=== PATIENT | female | born 1995 | race Caucasian/White ===

== ENCOUNTER 2016-09-25 22:10 | Emergency (ER) | payer OTHER ==
[2016-09-25 22:25] VITALS: BP 138/71; PULSE 81; TEMP 98.2; BMI 23.9
[2016-09-25 23:06] LABS: URINE APPEARANCE CLEAR; URINE BILIRUBIN NEGATIVE (NEGATIVE); URINE BLOOD NEGATIVE (NEGATIVE); URINE COLOR STRAW; URINE GLUCOSE (UA) NEGATIVE (NEGATIVE); URINE KETONE NEGATIVE (NEGATIVE); URINE NITRITE NEGATIVE (NEGATIVE); URINE PROTEIN NEGATIVE (NEGATIVE); URINE UROBILINOGEN NEGATIVE E.U./dl (0.2-1.0)
[2016-09-25 23:08] LABS: URINE LEUK ESTERASE TRACE (NEGATIVE)
[2016-09-25 23:14] LABS: URINE MUCUS RARE; URINE RBC <1 /hpf (0-3); URINE WBC 2 /hpf (3-5)
--- NOTE | 2016-09-25 23:44 | PDOC ---
History of Present Illness - General History Source: Patient Exam Limitations: No Limitations - History of Present Illness Initial Comments: 09/26/16 00:15 Patient is a 20 year old female with no significant past medical history who presents to the ED with right adnexal pain for 1 day. She describes the pain as uncomfortable.Patient notes that she has developed the following symptoms at 12pm today that have progressively worsened around 4pm when she was doing a lot of walking at work. She reports nausea, dizziness and urinary frequency. Surgical hx: none <Kaylie Murguia - Last Filed: 09/26/16 01:48> <Yaneli Sheppard - Last Filed: 09/26/16 02:05> - General Chief Complaint: Pain, Acute Stated Complaint: ABD PAIN Time Seen by Provider: 09/25/16 22:49 Past History <Kaylie Murguia - Last Filed: 09/26/16 01:48> - Past Medical History Suicide Attempt (Hx): No Other medical history: denies - Immunization History Immunization Up to Date: Yes - Psycho/Social/Smoking Cessation Hx Suicidal Ideation: No Smoking History: Never smoked Hx Alcohol Use: No Substance Use Type: None <Yaneli Sheppard - Last Filed: 09/26/16 02:05> - Past Medical History Allergies/Adverse Reactions: Allergies Allergy/AdvReac Type Severity Reaction Status Date / Time No Known Allergies Allergy Verified 09/25/16 22:22 Home Medications: Ambulatory Orders NK [No Known Home Medication] 09/25/16 Review of Systems - Review of Systems Able to Perform ROS?: Yes Comments:: 09/26/16 00:15 CONSTITUTIONAL: Absent: fever, chills, diaphoresis, generalized weakness, malaise, loss of appetite HEENT: Absent: rhinorrhea, nasal congestion, throat pain, throat swelling, difficulty swallowing, mouth swelling, ear pain, eye pain, visual Changes CARDIOVASCULAR: Absent: chest pain, syncope, palpitations, irregular heart rate, lightheadedness , peripheral edema RESPIRATORY: Absent: cough, shortness of breath, dyspnea with exertion, orthopnea, wheezing, stridor, hemoptysis GASTROINTESTINAL: Present: R suprapelvic pain Absent: abdominal pain, abdominal distension, nausea, vomiting, diarrhea, constipation, melena, hematochezia GENITOURINARY: Absent: dysuria, frequency, urgency, hesitancy, hematuria, flank pain, genital pain MUSCULOSKELETAL: Absent: myalgia, arthralgia, joint swelling SKIN: Absent: rash, itching, pallor HEMATOLOGIC/IMMUNOLOGIC: Absent: easy bleeding, easy bruising, lymphadenopathy, frequent infections ENDOCRINE: Absent: unexplained weight gain, unexplained weight loss, heat intolerance, cold intolerance NEUROLOGIC: Absent: headache, focal weakness or paresthesias, dizziness, unsteady gait, seizure, mental status changes, bladder or bowel incontinence PSYCHIATRIC: Absent: anxiety, depression, suicidal or homicidal ideation, hallucinations. <Kaylie Murguia - Last Filed: 09/26/16 01:48> *Physical Exam - Vital Signs Last Vital Signs Temp Pulse Resp BP Pulse Ox 98.2 F 81 18 138/71 100 09/25/16 22:22 09/25/16 22:22 09/25/16 22:22 09/25/16 22:22 09/25/16 22:22 - Physical Exam Comments: 09/26/16 00:16 GENERAL: Well developed, well nourished. Awake and alert. No acute distress. HEENT: Normocephalic, atraumatic. PERRLA, EOMI. No conjunctival pallor. Sclera are non- icteric. Moist mucous membranes. Oropharynx is clear. NECK: Supple. Full ROM. No JVD. Carotid pulses 2+ and symmetric, without bruits. No thyromegaly. No lymphadenopathy. CARDIOVASCULAR: Regular rate and rhythm. No murmurs, rubs, or gallops. Distal pulses are 2+ and symmetric. PULMONARY: No evidence of respiratory distress. Lungs clear to auscultation bilaterally. No wheezing, rales or rhonchi. ABDOMINAL: + right adnexal pain tenderness. Soft. Non-distended. No rebound or guarding. No organomegaly. Normoactive bowel sounds. MUSCULOSKELETAL Normal range of motion at all joints. No bony deformities or tenderness. No CVA tenderness. EXTREMITIES: No cyanosis. No clubbing. No edema. No calf tenderness. SKIN: Warm and dry. Normal capillary refill. No rashes. No jaundice. NEUROLOGICAL: Alert, awake, appropriate. Cranial nerves 2-12 intact. No deficits to light touch and temperature in face, upper extremities and lower extremities. No motor deficits in the in face, upper extremities and lower extremities. Normoreflexic in the upper and lower extremities. Normal speech. Toes are down-going bilaterally. Gait is normal without ataxia. PSYCHIATRIC: Cooperative. Good eye contact. Appropriate mood and affect. <Kaylie Murguia - Last Filed: 09/26/16 01:48> - Vital Signs Last Vital Signs Temp Pulse Resp BP Pulse Ox 98.2 F 81 18 138/71 100 09/25/16 22:22 09/25/16 22:22 09/25/16 22:22 09/25/16 22:22 09/25/16 22:22 <Yaneli Sheppard - Last Filed: 09/26/16 02:05> ED Treatment Course - ADDITIONAL ORDERS Additional order review: Laboratory Results 09/25/16 22:51 Urine Color Straw Urine Appearance Clear Urine pH 6.0 Ur Specific [place] 1.012 Urine Protein Negative Urine Glucose (UA) Negative Urine Ketones Negative Urine Blood Negative Urine Nitrite Negative Urine Bilirubin Negative Urine Urobilinogen Negative Ur Leukocyte Esterase Trace H Urine RBC <1 Urine WBC 2 Ur Epithelial Cells Rare Urine Mucus Rare Urine HCG, Qual Negative - RADIOLOGY Radiology Studies Ordered: 09/26/16 01:48 EXAM: Transvaginal pelvic ultrasound with Doppler study of the bilateral ovaries FINDINGS: Uterus is normal. Endometrial complex is normal and homogeneous with a thickness of 6.6 mm. Trace fluid in the cervix. Normal follicular right ovary with positive Doppler blood flow. Normal follicular left ovary with positive Doppler blood flow. There is some free fluid in the pelvic cul-de- sac. Therefore, there could have been a cyst that ruptured. <Kaylie Murguia - Last Filed: 09/26/16 01:48> - ADDITIONAL ORDERS Additional order review: Laboratory Results 09/25/16 22:51 Urine Color Straw Urine Appearance Clear Urine pH 6.0 Ur Specific [place] 1.012 Urine Protein Negative Urine Glucose (UA) Negative Urine Ketones Negative Urine Blood Negative Urine Nitrite Negative Urine Bilirubin Negative Urine Urobilinogen Negative Ur Leukocyte Esterase Trace H Urine RBC <1 Urine WBC 2 Ur Epithelial Cells Rare Urine Mucus Rare Urine HCG, Qual Negative <Yaneli Sheppard - Last Filed: 09/26/16 02:05> *DC/Admit/Observation/Transfer - Attestations Scribe Attestion: 09/26/16 00:17 Documentation prepared by LULU Garcia, acting as medical professionals for Yaneli Sheppard MD. <Kaylie Murguia - Last Filed: 09/26/16 01:48> <Yaneli Sheppard - Last Filed: 09/26/16 02:05> Diagnosis at time of Disposition: Cyst of ovary Qualifiers: Laterality: unspecified laterality Qualified Code(s): N83.20 - Unspecified ovarian cysts - Discharge Dispostion Disposition: HOME Condition at time of disposition: Stable - Referrals Referrals: STAFF,NOT ON [Primary Care Provider] - - Patient Instructions Printed Discharge Instructions: DI for Ovarian Cyst Additional Instructions: please take motrin for pain return in 24 hours if your symptoms worsen
== END 2016-09-26 02:09 | disposition home or self-care (01) ==
LOC: JER 22:10
DX: N83.209 Unspecified ovarian cyst, unspecified side (principal)
CPT/HCPCS: 76830-TC; 81003; 81015; 84703; 87086; 99282-25

== ENCOUNTER 2017-03-01 16:38 | Emergency (ER) | payer OTHER ==
[2017-03-01 16:55] VITALS: TEMP 98.4; BMI 26.2
--- NOTE | 2017-03-01 19:40 | PDOC ---
History of Present Illness - General Chief Complaint: Pain Stated Complaint: ABDOMINAL PAIN Time Seen by Provider: 03/01/17 19:40 - History of Present Illness Initial Comments: 03/01/17 20:06 03/01/17 19:56 20 year old female with b/l pelvic pain , dysparenia and vaginal bleeding x1 episode.neg home .patient reports clear vaginal discharge. LMP . Patient denies fever, nausea, vomiting and diarrhea, headache, chest pain, dysuria, frequency, and flank pain. Past History - Past Medical History Allergies/Adverse Reactions: Allergies Allergy/AdvReac Type Severity Reaction Status Date / Time No Known Allergies Allergy Verified 03/01/17 16:55 Home Medications: Ambulatory Orders Nitrofurantoin Monohyd/M-Cryst [Macrobid -] 100 mg PO BID #14 capsule 03/01/17 Suicide Attempt (Hx): No Other medical history: NONE - Immunization History Immunization Up to Date: Yes - Psycho/Social/Smoking Cessation Hx Anxiety: No Suicidal Ideation: No Smoking History: Never smoked Hx Alcohol Use: No Drug/Substance Use Hx: No Substance Use Type: None Review of Systems - Review of Systems Able to Perform ROS?: No Constitutional: No: Symptoms Reported, See HPI, Chills, Diaphoresis, Fever, Loss of Appetite, Malaise, Night Sweats, Weakness, Weight Stable, Unintentional Wgt. Loss, Unexplained wgt Loss, Other ABD/GI: Yes: Other (pelvic pain) : Yes: Symptoms Reported *Physical Exam - Vital Signs Last Vital Signs Temp Pulse Resp BP Pulse Ox 98.4 F 83 20 136/66 100 03/01/17 16:53 03/01/17 16:53 03/01/17 16:53 03/01/17 16:53 03/01/17 16:53 - Physical Exam General Appearance: Yes: Appropriately Dressed Respiratory/Chest: positive: Lungs Clear, Normal Breath Sounds Female Pelvic Exam: positive: normal external exam, cervical os closed, other ( white vaginal discharge in the vaginal vault). negative: Bartholin mass, adnexal tenderness Gastrointestinal/Abdominal: positive: Normal Bowel Sounds, Soft, Other ( suprapubic tenderness) Rectal Exam: positive: normal exam Musculoskeletal: positive: Normal Inspection. negative: CVA Tenderness Extremity: positive: Normal Capillary Refill, Normal Inspection, Normal Range of Motion Integumentary: positive: Normal Color, Dry, Warm Neurologic: positive: Fully Oriented, Alert, Normal Mood/Affect Progress Note - Progress Note Progress Note: A: UTI P: UA: + 3 leuks urine culture urine : negative GC pending. *DC/Admit/Observation/Transfer Diagnosis at time of Disposition: UTI (urinary tract infection) Qualifiers: Urinary tract infection type: acute cystitis Hematuria presence: without hematuria Qualified Code(s): N30.00 - Acute cystitis without hematuria - Discharge Dispostion Disposition: HOME - Prescriptions Prescriptions: Nitrofurantoin Monohyd/M-Cryst [Macrobid -] 100 mg PO BID #14 capsule - Patient Instructions Printed Discharge Instructions: DI for Urinary Tract Infection (UTI) Additional Instructions: drink plenty of fluids take macrobid as prescribed. follow up with your obgyn nurse return to the ER if symptoms worsen.
[2017-03-01 20:31] LABS: URINE APPEARANCE SLCLOUDY; URINE BILIRUBIN NEGATIVE (NEGATIVE); URINE COLOR YELLOW; URINE GLUCOSE (UA) NEGATIVE (NEGATIVE); URINE KETONE NEGATIVE (NEGATIVE); URINE NITRITE NEGATIVE (NEGATIVE); URINE PROTEIN NEGATIVE (NEGATIVE); URINE UROBILINOGEN NEGATIVE E.U./dl (0.2-1.0)
[2017-03-01 20:44] LABS: URINE BLOOD 1+ (NEGATIVE); URINE LEUK ESTERASE 3+ (NEGATIVE)
[2017-03-01 20:45] LABS: URINE BACTERIA RARE /hpf (NONE SEEN); URINE MUCUS FEW; URINE RBC 8 /hpf (0-3); URINE WBC 10 /hpf (3-5)
--- NOTE | 2017-03-01 21:02 | PDOC ---
*Physical Exam - Vital Signs Last Vital Signs Temp Pulse Resp BP Pulse Ox 98.4 F 83 20 136/66 100 03/01/17 16:53 03/01/17 16:53 03/01/17 16:53 03/01/17 16:53 03/01/17 16:53 ED Treatment Course - ADDITIONAL ORDERS Additional order review: Laboratory Results 03/01/17 20:00 Urine Color Yellow Urine Appearance Slcloudy Urine pH 5.0 Urine Protein Negative Urine Glucose (UA) Negative Urine Ketones Negative Urine Blood 1+ H Urine Nitrite Negative Urine Bilirubin Negative Urine Urobilinogen Negative Ur Leukocyte Esterase 3+ H D Urine RBC 8 Urine WBC 10 Ur Epithelial Cells Moderate Urine Bacteria Rare Urine Mucus Few Urine HCG, Qual Negative Medical Decision Making - Medical Decision Making 03/01/17 21:02 agree with care from NANDINI Sheppard *DC/Admit/Observation/Transfer Diagnosis at time of Disposition: UTI (urinary tract infection) - Discharge Dispostion Disposition: HOME - Prescriptions Prescriptions: Nitrofurantoin Monohyd/M-Cryst [Macrobid -] 100 mg PO BID #14 capsule - Referrals Referrals: STAFF,NOT ON [Primary Care Provider] - - Patient Instructions Printed Discharge Instructions: DI for Urinary Tract Infection (UTI) Additional Instructions: drink plenty of fluids take macrobid as prescribed. follow up with your maritime pilot return to the ER if symptoms worsen.
[2017-03-01] MEDS ORDERED: NITROFURANTOIN MACROCRYSTAL 50 MG CAPSULE (FP) PO SCH (21:30)
[2017-03-01 22:01] VITALS: BP 128/72; PULSE 86
== END 2017-03-01 22:04 | disposition home or self-care (01) ==
LOC: JER 16:38
DX: N30.00 Acute cystitis without hematuria (principal)
CPT/HCPCS: 36415; 81003; 81015; 84703; 87086; 87491; 87591; 99284-25

== ENCOUNTER 2017-11-28 16:19 | Emergency (ER) | payer OTHER ==
[2017-11-28] MEDS ORDERED: predniSONE 20 MG TABLET (UD) PO ONE (16:32)
[2017-11-28] MEDS ORDERED: diphenhydrAMINE HCL 25 MG CAPSULE (FP) PO ONE (16:32)
--- NOTE | 2017-11-28 16:32 | PDOC ---
Rapid Medical Evaluation Time Seen by Provider: 11/28/17 16:29 Medical Evaluation: Allergies Allergy/AdvReac Type Severity Reaction Status Date / Time No Known Allergies Allergy Verified 03/01/17 16:55 11/28/17 16:29 Pt c/o: sudden onset of itchy hives to face after eating wings, no breathing complaints, states throat feels funny Pt on brief exam: noted wheals to face and neck. Post soft palate pink, uvula midline and nonelongated Pt ordered for: Pt to proceed to the ED Discharge Disposition - Diagnosis Allergic reaction - Referrals - Patient Instructions - Post Discharge Activity
[2017-11-28 16:35] VITALS: BP 140/85; PULSE 75; TEMP 98.4; BMI 27.4
[2017-11-28] MEDS ORDERED: RANITIDINE HCL 150 MG TABLET (FP) PO ONE (17:02)
--- NOTE | 2017-11-28 17:03 | PDOC ---
History of Present Illness - General History Source: Patient Exam Limitations: No Limitations - History of Present Illness Initial Comments: 11/28/17 17:27 The patient is a 22 year old female, with no significant past medical history, who presents to the emergency department with, two hours of an allergic reaction. The patient describes her reaction to be localized to her face, ears, and neck. She describes her rash to be itchy and stinging. As per patient, she ate at [employer] 2 hours before her allergic reaction began then, went home to lay down. She reports after getting up her symptoms onset. She reports to have had one episode of an allergic reactions after touching a cat. She denies having any allergies. She denies recent fevers, chills, headache or dizziness. She denies recent nausea, vomit, diarrhea or constipation. She denies recent dysuria, frequency, urgency or hematuria. She denies recent chest pain or shortness of breath. Allergies: NKA Past surgical history: None reported. Social history: Nonsmoker. Denies EtOH use and recreational drug use. <Nguyen Conklin - Last Filed: 11/28/17 17:27> <Ying Teague - Last Filed: 11/28/17 18:06> - General Chief Complaint: Allergic Reaction Stated Complaint: ALLERGIC REACTION Time Seen by Provider: 11/28/17 16:29 Past History <Nguyen Conklin - Last Filed: 11/28/17 17:27> - Past Medical History COPD: No Other medical history: DENIES. - Immunization History Immunization Up to Date: Yes - Suicide/Smoking/Psychosocial Hx Smoking History: Current every day smoker Have you smoked in the past 12 months: Yes Number of Cigarettes Smoked Daily: 2 Information on smoking cessation initiated: No Hx Alcohol Use: No Drug/Substance Use Hx: No Substance Use Type: None <Ying Teague - Last Filed: 11/28/17 18:06> - Past Medical History Allergies/Adverse Reactions: Allergies Allergy/AdvReac Type Severity Reaction Status Date / Time No Known Allergies Allergy Verified 11/28/17 16:30 Home Medications: Ambulatory Orders Diphenhydramine [Benadryl -] 50 mg PO DAILY #10 capsule 11/28/17 Prednisone [Deltasone] 20 mg PO DAILY #5 tablet 11/28/17 Ranitidine HCl [Zantac] 150 mg PO DAILY #14 tablet 11/28/17 Review of Systems - Review of Systems Able to Perform ROS?: Yes Comments:: 11/28/17 17:28 CONSTITUTIONAL: Absent: fever, no chills, no fatigue EYES: Absent: visual changes ENT: Absent: ear pain, no sore throat CARDIOVASCULAR: Absent: chest pain, no palpitations RESPIRATORY: Absent: cough, no SOB GI: Absent: abdominal pain, no nausea, no vomiting, no constipation, no diarrhea GENITOURINARY: Absent: dysuria, no frequency, no hematuria MUSKULOSKELETAL: Absent: back pain, no arthralgia, no myalgia SKIN: Present: Rash on the face, neck, and ears. NEURO: Absent: headache All Other Systems: Reviewed and Negative <Nguyen Conklin - Last Filed: 11/28/17 17:27> *Physical Exam - Vital Signs Last Vital Signs Temp Pulse Resp BP Pulse Ox 98.4 F 75 19 140/85 100 11/28/17 16:30 11/28/17 16:30 11/28/17 16:30 11/28/17 16:30 11/28/17 16:30 - Physical Exam Comments: 11/28/17 17:28 GENERAL: Well-appearing, well-nourished. No apparent distress. HEENT: Normocephalic, atraumatic. PERRL, EOM intact. CARDIOVASCULAR: Normal S1, S2. Regular rate and rhythm. PULMONARY: Clear to auscultation bilaterally. ABDOMEN: Soft, non-distended, non-tender. EXTREMITIES: Normal ROM in all four extremities. No gross deformities. (+) SKIN: + Pruritic erythematous wheales to the face and neck. Raw erythematous right pinnacle. Warm, dry. NEUROLOGICAL: No focal neurological deficits. <Nguyen Conklin - Last Filed: 11/28/17 17:27> - Vital Signs Last Vital Signs Temp Pulse Resp BP Pulse Ox 98.4 F 75 19 140/85 100 11/28/17 16:30 11/28/17 16:30 11/28/17 16:30 11/28/17 16:30 11/28/17 16:30 <Ying Teague - Last Filed: 11/28/17 18:06> ED Treatment Course - Medications Given in the ED: ED Medications Discontinued Medications Generic Name Dose Route Start Last Admin Trade Name Freq PRN Reason Stop Dose Admin Diphenhydramine HCl 50 mg 11/28/17 16:32 11/28/17 16:37 Benadryl - PO 11/28/17 16:33 50 mg ONCE ONE Administration Prednisone 60 mg 11/28/17 16:32 11/28/17 16:37 Deltasone - PO 11/28/17 16:33 60 mg ONCE ONE Administration Ranitidine HCl 150 mg 11/28/17 17:02 11/28/17 17:09 Zantac - PO 11/28/17 17:03 150 mg ONCE ONE Administration <Nguyen Conklin - Last Filed: 11/28/17 17:27> - Medications Given in the ED: ED Medications Discontinued Medications Generic Name Dose Route Start Last Admin Trade Name Freq PRN Reason Stop Dose Admin Diphenhydramine HCl 50 mg 11/28/17 16:32 11/28/17 16:37 Benadryl - PO 11/28/17 16:33 50 mg ONCE ONE Administration Prednisone 60 mg 11/28/17 16:32 11/28/17 16:37 Deltasone - PO 11/28/17 16:33 60 mg ONCE ONE Administration <Ying Teague - Last Filed: 11/28/17 18:06> Medical Decision Making - Medical Decision Making 11/28/17 18:03 A/P: Patient here with allergic reaction to face, denies any new lotion soaps or detergents however was rubbing her face on a pillow that was recently washing gain. Patient reports eating wings where she has eaten in the past at 1 PM, rash started at 3 after laying down and having her face and the pillow. Wheals localized to face, and neck. Prednisone, Benadryl and Zantac given with good results, wheals have resolved will DC patient on Benadryl, Zantac and prednisone. If any increased rash, wheezing, difficulty swallowing, or any other concerns return to ER <Ying Teague - Last Filed: 11/28/17 18:06> *DC/Admit/Observation/Transfer - Attestations Scribe Attestion: 11/28/17 17:29 Documentation prepared by Nguyen Conklin, acting as medical chief technician for Emergency Dept,PhysicianMD. <Nguyen Conklin - Last Filed: 11/28/17 17:27> - Discharge Dispostion Admit: No <Ying Teague - Last Filed: 11/28/17 18:06> Diagnosis at time of Disposition: Allergic reaction Qualifiers: Encounter type: initial encounter Qualified Code(s): T78.40XA - Allergy, unspecified, initial encounter - Discharge Dispostion Disposition: HOME Condition at time of disposition: Stable - Prescriptions Prescriptions: Diphenhydramine [Benadryl -] 50 mg PO DAILY #10 capsule Prednisone [Deltasone] 20 mg PO DAILY #5 tablet Ranitidine HCl [Zantac] 150 mg PO DAILY #14 tablet - Referrals Referrals: Vito Gonzalez MD [Staff Physician] - - Patient Instructions Additional Instructions: Benadryl every 8 hours for the next 3 days if any increased rash, shortness of breath, difficulty swallowing, wheezing, or any other concerns return to ER - Post Discharge Activity Forms/Work/School Notes: Back to Work
[2017-11-28] MEDS ORDERED: RANITIDINE HCL 150 MG TABLET (FP) ONE (17:10)
== END 2017-11-28 18:35 | disposition home or self-care (01) ==
LOC: JERFT 16:19
DX: T78.1XXA Other adverse food reactions, not elsewhere classified, initial encounter (principal); L50.0 Allergic urticaria; X58.XXXA Exposure to other specified factors, initial encounter
CPT/HCPCS: 99281-25

== ENCOUNTER 2018-10-22 12:57 | Emergency (ER) | payer SELFPAY ==
[2018-10-22 13:09] VITALS: BP 149/65; PULSE 101; TEMP 98.7; BMI 29.2
[2018-10-22] MEDS ORDERED: PENICILLIN G BENZATHINE 1,200,000 UNIT/2 ML PFS IM ONE (13:40)
[2018-10-22] MEDS ORDERED: DEXAMETHASONE LIQUID 0.5 MG/5 ML 240 ML BULK BOTTLE PO ONE (13:40)
[2018-10-22] MEDS ORDERED: DEXAMETHASONE SOD PHOSPHATE 10 MG/1 ML VIAL ONE (13:42)
--- NOTE | 2018-10-22 13:45 | PDOC ---
History of Present Illness - General Chief Complaint: Allergic Reaction Stated Complaint: LT SIDE RASH ON THE NECK / THROAT BURNING Time Seen by Provider: 10/22/18 13:15 - History of Present Illness Initial Comments: 10/22/18 13:41 22-year-old female with sore throat and rash times one day no systemic symptoms no sick contacts Past History - Past Medical History Allergies/Adverse Reactions: Allergies Allergy/AdvReac Type Severity Reaction Status Date / Time No Known Allergies Allergy Verified 05/04/18 19:14 Home Medications: Ambulatory Orders NK [No Known Home Medication] 05/04/18 COPD: No - Immunization History Immunization Up to Date: Yes - Suicide/Smoking/Psychosocial Hx Smoking History: Never smoked Have you smoked in the past 12 months: Yes Number of Cigarettes Smoked Daily: 2 Hx Alcohol Use: No Drug/Substance Use Hx: No Substance Use Type: None Review of Systems - Review of Systems Constitutional: Yes: Malaise. No: Fever HEENTM: Yes: Throat Pain, Throat Swelling, Difficulty Swallowing Integumentary: Yes: Rash *Physical Exam - Vital Signs Last Vital Signs Temp Pulse Resp BP Pulse Ox 98.7 F 101 H 18 149/65 100 10/22/18 13:07 10/22/18 13:07 10/22/18 13:07 10/22/18 13:07 10/22/18 13:07 - Physical Exam Comments: 10/22/18 13:41 HEAD: NC/AT EYES: Conjuntiva clear Ears: Canals and TM's normal NOSE: No d/c THROAT: Moist mucous membrances, oral pharanx. erythemic with exudate uvula midline NECK: Supple without adenopathy CARDIAC: S1 S2 LUNGS: CTA Full and Equal breath sounds ABDOMEN: Soft NT ND MS: Full ROM in all joints without edema NEUROLOGIC: No gross sensory or motor deficits, NVID SKIN: Normal color and temperature is a maculopapular rash on the left side of the neck Moderate Sedation - Procedure Monitoring Vital Signs: Procedure Monitoring Vital Signs Temperature 98.7 F 10/22/18 13:07 Pulse Rate 101 H 10/22/18 13:07 Respiratory Rate 18 10/22/18 13:07 Blood Pressure 149/65 10/22/18 13:07 O2 Sat by Pulse Oximetry (%) 100 10/22/18 13:07 *DC/Admit/Observation/Transfer Diagnosis at time of Disposition: Strep pharyngitis - Discharge Dispostion Disposition: HOME Condition at time of disposition: Stable Decision to Admit order: No - Referrals Referrals: Ki Sandoval [Non Staff, Medical] - - Patient Instructions Additional Instructions: He did not require any further antibiotics. You were treated in the emergency room with a single dose of penicillin and steroid. Return to the emergency room should symptoms go unresolved and follow-up with your primary care physician in one to 2 days for further evaluation and treatment options. He did not require any Motrin Advil Aleve or ibuprofen. If you need something additional for pain he may take Tylenol as directed. Warm salt water gargles will help her throat pain 5-6 times a day. - Post Discharge Activity
== END 2018-10-22 14:19 | disposition home or self-care (01) ==
LOC: JERFT 12:57
DX: J02.0 Streptococcal pharyngitis (principal); B95.5 Unspecified streptococcus as the cause of diseases classified elsewhere
CPT/HCPCS: 99281-25

== ENCOUNTER 2018-12-14 22:21 | Emergency (ER) | payer OTHER ==
[2018-12-14 22:30] VITALS: TEMP 98; BMI 29.5
--- NOTE | 2018-12-14 23:12 | PDOC ---
History of Present Illness - General Chief Complaint: Pain Stated Complaint: ABD PAIN Time Seen by Provider: 12/14/18 23:11 - History of Present Illness Initial Comments: 30 year old female with nausea and right lower quadrant pain for the past day. States that she has mild right lower quadrant pain that has been nagging her since 15:00 today. States that her LMP was 7 days ago and she has regular periods without any severe pain or abnormal bleeding. she has never been . She has unprotected sex with a monogamous partner for the past 4years. Denies unusual odor or discharge from her genitals. Denies fevers, chills, vomiting, diarrhea, or other symptoms. 12/15/18 02:36 Past History - Past Medical History Allergies/Adverse Reactions: Allergies Allergy/AdvReac Type Severity Reaction Status Date / Time No Known Allergies Allergy Verified 12/14/18 22:30 Home Medications: Ambulatory Orders NK [No Known Home Medication] 05/04/18 COPD: No - Immunization History Immunization Up to Date: Yes - Suicide/Smoking/Psychosocial Hx Smoking History: Never smoked Have you smoked in the past 12 months: No Number of Cigarettes Smoked Daily: 2 Information on smoking cessation initiated: No Hx Alcohol Use: Yes (social) Drug/Substance Use Hx: No Substance Use Type: None Review of Systems - Review of Systems Constitutional: No: Chills, Diaphoresis, Fever, Loss of Appetite HEENTM: No: Blurred Vision, Tearing Respiratory: No: Cough, Orthopnea, Shortness of Breath Cardiac (ROS): No: Chest Pain, Edema, Irregular Heart Rate ABD/GI: Yes: Nausea. No: Diarrhea, Vomiting : No: Dysuria, Discharge, Frequency Integumentary: No: Lesions, Lumps Neurological: No: Headache, Numbness, Paresthesia Psychiatric: No: Anxiety, Depression Hematologic/Lymphatic: No: Anemia, Blood Clots, Easy Bleeding *Physical Exam - Vital Signs Last Vital Signs Temp Pulse Resp BP Pulse Ox 98.0 F 84 18 128/81 100 12/14/18 22:27 12/14/18 22:27 12/14/18 22:27 12/14/18 22:27 12/14/18 22:27 - Physical Exam General Appearance: Yes: Nourished, Appropriately Dressed. No: Apparent Distress HEENT: positive: EOMI, MARYELLEN, Normal ENT Inspection, Normal Voice Neck: positive: Trachea midline, Normal Thyroid, Supple. negative: Tender, Rigid Respiratory/Chest: positive: Lungs Clear, Normal Breath Sounds. negative: Chest Tender, Respiratory Distress Cardiovascular: positive: Regular Rhythm, Regular Rate Gastrointestinal/Abdominal: positive: Normal Bowel Sounds, Tender (rlq tenderness with rebound), Flat, Soft Lymphatic: negative: Adenopathy, Tenderness Musculoskeletal: positive: Normal Inspection. negative: Decreased Range of Motion Integumentary: positive: Normal Color, Dry, Warm Neurologic: positive: Fully Oriented, Alert, Normal Mood/Affect, Normal Response , Motor Strength 01/06 ED Treatment Course - LABORATORY CBC & Chemistry Diagram: 12/14/18 23:35 12/14/18 23:35 Medical Decision Making - Medical Decision Making 23 year old female with rlq pain originally concerning for appy but rule out on ct. No other sign of radiological pathology. labs wnl. VSS and patient better after Tylenol. Will DC with follow up for possible ovarian pathology. But not likely ovarian torsion as patient no longer in pain and overall non-toxic. 12/15/18 02:45 *DC/Admit/Observation/Transfer Diagnosis at time of Disposition: Abdominal pain Qualifiers: Abdominal location: generalized Qualified Code(s): R10.84 - Generalized abdominal pain - Discharge Dispostion Disposition: HOME Condition at time of disposition: Improved Decision to Admit order: No - Referrals Referrals: Romaine Arciniega MD [Staff Physician] - - Patient Instructions Printed Discharge Instructions: DI for Abdominal Pain-Adult Additional Instructions: You have no infection in your stomach. Please follow up with Dr. Mendosa next week to have further evaluation for possible ovarian cysts. Please return to the Ed if you have new or worsening symptoms. - Post Discharge Activity
--- NOTE | 2018-12-14 23:43 | PDOC ---
Attending Attestation - HPI HPI: 12/14/18 23:53 The patient is a 23 year old female with no significant PMH who presents to the emergency department with bilateral superpubic tenderness since 2pm. The patient states she was at work at the onset of her pain. The patient notes her pain is worsened with movement. The patient endorses nausea and clear discharge , which is normal for her. The patient notes she has been sexually active with her partner for the past 4 years. The patient denies any burning on urination. The patient denies STDs. The patient notes her LMP was 7 days ago, The patient denies chest pain, shortness of breath, headache or dizziness.. The patient denies dysuria, frequency, urgency or hematuria. Allergies: NKDA Past surgical history: None reported Social history: Social drinker. No tobacco use. - Physicial Exam PE: 12/14/18 23:54 GENERAL: Awake, alert, and fully oriented, in no acute distress HEAD: No signs of trauma EYES: PERRLA, EOMI, sclera anicteric, conjunctiva clear ENT: Auricles normal inspection, hearing grossly normal, nares patent, oropharynx clear without exudates. Moist mucosa NECK: Normal ROM, supple, no lymphadenopathy, JVD, or masses LUNGS: Breath sounds equal, clear to auscultation bilaterally. No wheezes, and no crackles HEART: Regular rate and rhythm, normal S1 and S2, no murmurs, rubs or gallops ABDOMEN: (+) RLQ tenderness, guarding, and rebound. (+) LLQ deep palpation and pain radiating to her right side. (+) Rovsings Sign. Soft, nontender, normoactive bowel sounds. EXTREMITIES: Normal range of motion, no edema. No clubbing or cyanosis. No cords, erythema, or tenderness NEUROLOGICAL: Cranial nerves II through XII grossly intact. Normal speech, normal gait SKIN: Warm, Dry, normal turgor, no rashes or lesions noted. <King Raymundo - Last Filed: 12/14/18 23:53> - Resident Resident Name: Gini Xavier - ED Attending Attestation I have performed the following: I have examined & evaluated the patient, The case was reviewed & discussed with the resident, I agree w/resident's findings & plan - Medical Decision Making 12/15/18 00:21 Pt has clear rebound RLQ as well as rovsings sign. Pt has no flank pain. She has discomfort with pressure of the upper quadrants. Pt has no fever. 12/15/18 01:07 Pt has no elevated WBC count; but she has elevated platelet count. <Yolanda Iglesias - Last Filed: 12/15/18 01:07> - Medical Decision Making EXAM: CT ABDOMEN \T\ PELVIS CT WITH CONTR HISTORY: Concern for appendicitis IMPRESSION: Normal appearing appendix. Vahid Walker MD 12/15/2018 02:10 Documentation prepared by LULU Early, acting as medical care administrator for Yolanda Iglesias MD. 12/15/18 03:39 <Colleen Spivey - Last Filed: 12/15/18 03:39> Attestations - Attestations 12/14/18 23:54 Documentation prepared by King Raymundo, acting as medical care administrator for Yolanda Iglesias MD <King Raymundo - Last Filed: 12/14/18 23:53>
[2018-12-15 00:05] LABS: BASO % 0.5 % (0-2.0); EOS % 1.9 % (0-4.5); HEMATOCRIT 34.2 % (32.4-45.2); HEMOGLOBIN 11.2 GM/dL (10.7-15.3); LYMPH % 25.1 % (8-40); MCH 22.9 pg (25.7-33.7); MCHC 32.9 g/dl (32.0-36.0); MEAN CELL VOLUME 69.5 fl (80-96); MONO % 8.2 % (3.8-10.2); NEUT % 64.3 % (42.8-82.8); PLATELET COUNT 440 K/MM3 (134-434); RBC 4.91 M/mm3 (3.60-5.2); RDW 18.5 % (11.6-15.6); WHITE BLOOD COUNT 9.7 K/mm3 (4.0-10.0)
[2018-12-15 00:23] LABS: INR 1.02 (0.83-1.09)
[2018-12-15 00:32] LABS: ALBUMIN 3.9 g/dl (3.4-5.0); ANION GAP 9 MMOL/L (8-16); BLOOD UREA NITROGEN 8 mg/dL (7-18); CALCIUM 8.8 mg/dL (8.5-10.1); CHLORIDE 104 mmol/L (98-107); CO2 27 mmol/L (21-32); CREATININE 0.6 mg/dL (0.55-1.3); GLUCOSE,RANDOM 91 mg/dL (74-106); POTASSIUM 4.1 mmol/L (3.5-5.1); SGOT/AST 19 U/L (15-37); SGPT/ALT 26 U/L (13-61); SODIUM 139 mmol/L (136-145)
[2018-12-15 00:33] LABS: ALK PHOS 80 U/L (45-117); BILIRUBIN,TOTAL 0.2 mg/dL (0.2-1); TOT PROT 7.8 g/dl (6.4-8.2)
[2018-12-15 01:00] LABS: PH,URINE 5.5 (5.0-8.0); URINE APPEARANCE CLEAR; URINE BILIRUBIN NEGATIVE (NEGATIVE); URINE COLOR YELLOW; URINE GLUCOSE (UA) NEGATIVE (NEGATIVE); URINE KETONE NEGATIVE (NEGATIVE); URINE LEUK ESTERASE NEGATIVE (NEGATIVE); URINE NITRITE NEGATIVE (NEGATIVE); URINE PROTEIN NEGATIVE (NEGATIVE)
[2018-12-15 01:03] LABS: HCG,QUALITATIVE URINE Negative
[2018-12-15] MEDS ORDERED: ACETAMINOPHEN 500 MG TABLET (FP) PO ONE (02:32)
[2018-12-15] MEDS ORDERED: ACETAMINOPHEN 325 MG TABLET (FP) ONE (02:48)
[2018-12-15 03:08] VITALS: BP 112/52; PULSE 87
== END 2018-12-15 03:00 | disposition home or self-care (01) ==
LOC: JER 22:21
DX: R10.84 Generalized abdominal pain (principal)
CPT/HCPCS: 36415; 74177-TC; 80053; 81003; 84702; 84703; 85025; 85610; 86850; 86900; 86901; 99283-25

== ENCOUNTER 2018-12-17 02:12 | Emergency (ER) | payer OTHER ==
[2018-12-17 02:54] VITALS: BMI 29.5
--- NOTE | 2018-12-17 02:54 | PDOC ---
History of Present Illness - General History Source: Patient Exam Limitations: No Limitations - History of Present Illness Initial Comments: 12/17/18 02:57 18 y/o female with no PMH presents to the ED with RLQ pain- of note patient was here on Monday night with similar pain. Ab/pelvis CT was done which showed no evidence of appendicitis and she was given LOG SCALER follow up and was instructed to take tylenol every 4-6 hours. UTI and was also ruled out at that time. She states the pain was manageable yesterday however today the pain was much worse. She rates the pain a 9/10 with minimal relief after taking Tylenol. She states the pain is worse with standing. The pain is now not only in her RLQ but is not suprapubic pain. She has regular periods every month, her LMP was one week ago. She last saw a social work professor 9 months ago and had a pap smear at that time which was normal. The last time she took anything for her pain was around 11;30 pm. She is not on control and is monogamous with one partner. She is having slight nausea however denies any fevers/chills/vomiting/ diarrhea. She has not had any recent illnesses, any recent travel or sick contacts. 12/17/18 03:02 Timing/Duration: constant Severity: severe Modifying Factors: improves with: rest Associated Symptoms: reports: nausea/vomiting. denies: chest pain, fever/chills <Elle Pichardo - Last Filed: 12/17/18 05:52> <Yolanda Iglesias - Last Filed: 12/17/18 06:36> - General Chief Complaint: Pain, Acute Stated Complaint: ABDOMINAL PAIN Time Seen by Provider: 12/17/18 02:45 Past History - Travel Traveled outside of the country in the last 30 days: No Close contact w/someone who was outside of country & ill: No - Past Medical History COPD: No - Family Disease History Family Disease History: Diabetes: Father, Mother - Reproductive History LMP comment: one week ago LMP Normal: Yes Is Patient Now?: No - Immunization History Immunization Up to Date: Yes - Suicide/Smoking/Psychosocial Hx Smoking History: Never smoked Have you smoked in the past 12 months: No Number of Cigarettes Smoked Daily: 2 Hx Alcohol Use: Yes (social) Drug/Substance Use Hx: No Substance Use Type: None <Elle Pichardo - Last Filed: 12/17/18 05:52> <Yolanda Iglesias - Last Filed: 12/17/18 06:36> - Past Medical History Allergies/Adverse Reactions: Allergies Allergy/AdvReac Type Severity Reaction Status Date / Time No Known Allergies Allergy Verified 12/17/18 02:54 Home Medications: Ambulatory Orders NK [No Known Home Medication] 05/04/18 Review of Systems - Review of Systems Able to Perform ROS?: Yes Is the patient limited Hungarian proficient: No Constitutional: No: Fever HEENTM: No: Blurred Vision Respiratory: No: Cough, Shortness of Breath Cardiac (ROS): No: Chest Pain, Palpitations : Yes: Pain (RLQ/suprapubic). No: Burning, Dysuria Neurological: No: Headache, Weakness <Elle Pichardo - Last Filed: 12/17/18 05:52> *Physical Exam - Physical Exam General Appearance: Yes: Mild Distress Neck: positive: Normal Thyroid Respiratory/Chest: positive: Lungs Clear, Normal Breath Sounds Cardiovascular: positive: Regular Rhythm, Regular Rate, S1, S2. negative: Edema Gastrointestinal/Abdominal: positive: Normal Bowel Sounds, Tender (RLQ tenderness with + rebound tenderness), Soft Musculoskeletal: negative: CVA Tenderness Integumentary: positive: Normal Color Neurologic: positive: Alert <Elle Pichardo - Last Filed: 12/17/18 05:52> - Vital Signs Last Vital Signs Temp Pulse Resp BP Pulse Ox 98.4 F 111 H 18 122/75 98 12/17/18 06:25 12/17/18 06:25 12/17/18 06:25 12/17/18 06:25 12/17/18 06:25 <Yolanda Iglesias - Last Filed: 12/17/18 06:36> ED Treatment Course - LABORATORY CBC & Chemistry Diagram: 12/17/18 05:08 12/17/18 05:08 <Elle Pichardo - Last Filed: 12/17/18 05:52> - LABORATORY CBC & Chemistry Diagram: 12/17/18 05:08 12/17/18 05:08 - ADDITIONAL ORDERS Additional order review: Laboratory Results 12/17/18 05:08 Sodium 137 Potassium 4.0 Chloride 105 Carbon Dioxide 27 Anion Gap 6 L BUN 8 Creatinine 0.6 Creat Clearance w eGFR 125.01 Random Glucose 99 Calcium 8.8 Total Bilirubin 0.2 AST 13 L ALT 22 Alkaline Phosphatase 76 Total Protein 7.2 Albumin 3.4 12/17/18 05:08 RBC 4.49 MCV 68.3 L MCHC 34.2 RDW 18.8 H MPV 8.6 Neutrophils % 60.1 Lymphocytes % 28.1 Monocytes % 9.4 Eosinophils % 1.7 Basophils % 0.7 - RADIOLOGY Radiology Studies Ordered: Category Date Time Status TRANSVAGINAL ULTRASOUND US [US] Stat Ultrasound 12/17/18 02:53 Ordered - Medications Given in the ED: ED Medications Discontinued Medications Generic Name Dose Route Start Last Admin Trade Name Freq PRN Reason Stop Dose Admin Lactulose 20 gm 12/17/18 05:02 12/17/18 05:07 Cephulac (Oral Use) PO 12/17/18 05:03 20 gm ONCE ONE Administration <Yolanda Iglesias - Last Filed: 12/17/18 06:36> Medical Decision Making - Medical Decision Making 12/17/18 03:16 cbc/cmp- normlal pelvic U/S pending 12/17/18 05:11 12/17/18 05:52 <Elle Pichardo - Last Filed: 12/17/18 05:52> *DC/Admit/Observation/Transfer <Elle Pichardo - Last Filed: 12/17/18 05:52> <Yolanda Iglesias - Last Filed: 12/17/18 06:36> - Discharge Dispostion Condition at time of disposition: Fair
--- NOTE | 2018-12-17 04:07 | PDOC ---
Attending Attestation - Resident Resident Name: Elle Pichardo - ED Attending Attestation I have performed the following: I have examined & evaluated the patient, The case was reviewed & discussed with the resident, I agree w/resident's findings & plan - HPI HPI: 12/17/18 04:07 Pt comes with RLQ pain - Physicial Exam PE: 12/17/18 05:01 Pt has RLQ rebound but no guarding. SHe is afebrile. She is able to eat food. - Medical Decision Making 12/17/18 05:01 Pt will have repeat labs She will have sono in the AM 12/17/18 05:42 WBC is normal. THis is likely not appy. 12/17/18 05:48 Pt will be signed out to the day ER team who will follow the sonogram. I tried calling sono, and they refused to come in after hours, as pt is not an ovarian torsion or ectopic.
[2018-12-17] MEDS ORDERED: LACTULOSE 20 GM/30 ML UDC (FOR ORAL USE ONLY) PO ONE (05:02)
[2018-12-17] MEDS ORDERED: LACTULOSE 20 GM/30 ML UDC (FOR ORAL USE ONLY) ONE (05:06)
[2018-12-17 05:26] LABS: BASO % 0.7 % (0-2.0); EOS % 1.7 % (0-4.5); HEMATOCRIT 30.7 % (32.4-45.2); HEMOGLOBIN 10.5 GM/dL (10.7-15.3); LYMPH % 28.1 % (8-40); MCH 23.4 pg (25.7-33.7); MCHC 34.2 g/dl (32.0-36.0); MEAN CELL VOLUME 68.3 fl (80-96); MEAN PLT VOLUME 8.6 fl (7.5-11.1); MONO % 9.4 % (3.8-10.2); NEUT % 60.1 % (42.8-82.8); PLATELET COUNT 398 K/MM3 (134-434); RBC 4.49 M/mm3 (3.60-5.2); RDW 18.8 % (11.6-15.6); WHITE BLOOD COUNT 9.5 K/mm3 (4.0-10.0)
[2018-12-17 06:10] LABS: ALBUMIN 3.4 g/dl (3.4-5.0); ALK PHOS 76 U/L (45-117); ANION GAP 6 MMOL/L (8-16); BILIRUBIN,TOTAL 0.2 mg/dL (0.2-1); BLOOD UREA NITROGEN 8 mg/dL (7-18); CALCIUM 8.8 mg/dL (8.5-10.1); CHLORIDE 105 mmol/L (98-107); CO2 27 mmol/L (21-32); CREATININE 0.6 mg/dL (0.55-1.3); GLUCOSE,RANDOM 99 mg/dL (74-106); SGOT/AST 13 U/L (15-37); SGPT/ALT 22 U/L (13-61); SODIUM 137 mmol/L (136-145); TOT PROT 7.2 g/dl (6.4-8.2)
[2018-12-17] MEDS ORDERED: SODIUM CHLORIDE 1,000 ML IV STA (07:56)
[2018-12-17] MEDS ORDERED: ACETAMINOPHEN 1000 MG/100 ML VIAL (NON FORMULARY) IVPB ONE (07:57)
[2018-12-17] MEDS ORDERED: ACETAMINOPHEN INJECTION 100 ML IVPB ONE (08:16)
[2018-12-17 10:35] LABS: URINE APPEARANCE CLEAR; URINE BILIRUBIN NEGATIVE (NEGATIVE); URINE COLOR YELLOW; URINE GLUCOSE (UA) NEGATIVE (NEGATIVE); URINE KETONE NEGATIVE (NEGATIVE); URINE LEUK ESTERASE NEGATIVE (NEGATIVE); URINE NITRITE NEGATIVE (NEGATIVE); URINE PROTEIN NEGATIVE (NEGATIVE); URINE UROBILINOGEN 0.2 mg/dL (0.2-1.0)
[2018-12-17 11:04] VITALS: BP 112/63; PULSE 87; TEMP 98.5
--- NOTE | 2018-12-17 11:09 | PDOC ---
*Physical Exam - Vital Signs Last Vital Signs Temp Pulse Resp BP Pulse Ox 98.5 F 87 18 112/63 97 12/17/18 10:00 12/17/18 10:00 12/17/18 06:25 12/17/18 10:00 12/17/18 10:00 ED Treatment Course - LABORATORY CBC & Chemistry Diagram: 12/17/18 05:08 12/17/18 05:08 - ADDITIONAL ORDERS Additional order review: Laboratory Results 12/17/18 12/17/18 10:24 05:08 Sodium 137 Potassium 4.0 Chloride 105 Carbon Dioxide 27 Anion Gap 6 L BUN 8 Creatinine 0.6 Creat Clearance w eGFR 125.01 Random Glucose 99 Calcium 8.8 Total Bilirubin 0.2 AST 13 L ALT 22 Alkaline Phosphatase 76 Total Protein 7.2 Albumin 3.4 Urine Color Yellow Urine Appearance Clear Urine pH 7.0 D Ur Specific Roma 1.005 L Urine Protein Negative Urine Glucose (UA) Negative Urine Ketones Negative Urine Blood Negative Urine Nitrite Negative Urine Bilirubin Negative Urine Urobilinogen 0.2 Ur Leukocyte Esterase Negative 12/17/18 05:08 RBC 4.49 MCV 68.3 L MCHC 34.2 RDW 18.8 H MPV 8.6 Neutrophils % 60.1 Lymphocytes % 28.1 Monocytes % 9.4 Eosinophils % 1.7 Basophils % 0.7 - Medications Given in the ED: ED Medications Discontinued Medications Generic Name Dose Route Start Last Admin Trade Name Charlyq PRN Reason Stop Dose Admin Acetaminophen 1,000 mg 12/17/18 07:57 12/17/18 08:32 Ofirmev Injection - IVPB 12/17/18 07:58 1,000 mg ONCE ONE Administration Sodium Chloride 1,000 mls @ 1,000 mls/hr 12/17/18 07:56 12/17/18 08:32 Normal Saline - IV 12/17/18 08:55 1,000 mls/hr ASDIR STA Administration Lactulose 20 gm 12/17/18 05:02 12/17/18 05:07 Cephulac (Oral Use) PO 12/17/18 05:03 20 gm ONCE ONE Administration Medical Decision Making - Medical Decision Making 12/17/18 11:06 Urine sent and negative. TVUS negatuive for acute processes. PAtient now complaining of watery diarrhea. Likely viral gastro. Ok to discharge. *DC/Admit/Observation/Transfer Diagnosis at time of Disposition: Abdominal pain, Diarrhea - Discharge Dispostion Disposition: HOME Condition at time of disposition: Fair Decision to Admit order: No - Referrals Referrals: Rosalio Padilla MD [Staff Physician] - - Patient Instructions Printed Discharge Instructions: DI for Viral Gastroenteritis -- Adult Additional Instructions: Drink plenty of fluids. Follow up with your primary care provider an/or with Dr. Padilla corporate auditor, within the next 3 days. - Post Discharge Activity Forms/Work/School Notes: Back to Work
== END 2018-12-17 11:30 | disposition home or self-care (01) ==
LOC: JER 02:12
PROC: 3E033NZ Introduction of Analgesics, Hypnotics, Sedatives into Peripheral Vein, Percutaneous Approach (ICD-10-PCS; principal; 2018-12-17)
DX: A08.4 Viral intestinal infection, unspecified (principal); B97.89 Other viral agents as the cause of diseases classified elsewhere
CPT/HCPCS: 36415; 76830-TC; 80053; 81003; 85025; 96374; 99282-25; J0131; J7030

== ENCOUNTER 2020-08-29 07:44 | Emergency (ER) | payer OTHER ==
[2020-08-29 08:04] VITALS: BMI 32.8
[2020-08-29] MEDS ORDERED: PANTOPRAZOLE SODIUM 40 MG VIAL IVPUSH ONE (08:51)
[2020-08-29] MEDS ORDERED: ONDANSETRON 4 MG/2 ML VIAL IVPUSH ONE (08:51)
[2020-08-29] MEDS ORDERED: LACTATED RINGERS SOLUTION 1000 ML INFUS.BAG IV ONE (08:51)
[2020-08-29] MEDS ORDERED: ACETAMINOPHEN 1000 MG/100 ML VIAL (NON FORMULARY) IVPB ONE (08:52)
[2020-08-29] MEDS ORDERED: PANTOPRAZOLE SODIUM 40 MG VIAL ONE (09:16)
[2020-08-29] MEDS ORDERED: ACETAMINOPHEN INJECTION 100 ML IVPB ONE (09:16)
[2020-08-29] MEDS ORDERED: ONDANSETRON 4 MG/2 ML VIAL ONE (09:16)
[2020-08-29 09:39] LABS: BASO % 0.9 % (0-2.0); EOS % 1.6 % (0-4.5); HEMATOCRIT 35.8 % (32.4-45.2); HEMOGLOBIN 12.1 GM/dL (10.7-15.3); LYMPH % 16.9 % (8-40); MCHC 33.9 g/dl (32.0-36.0); MEAN CELL VOLUME 73.7 fl (80-96); MEAN PLT VOLUME 9.7 fl (7.5-11.1); MONO % 8.5 % (3.8-10.2); NEUT % 72.1 % (42.8-82.8); PLATELET COUNT 331 K/MM3 (134-434); RBC 4.85 M/mm3 (3.60-5.2); RDW 16.6 % (11.6-15.6)
[2020-08-29 10:00] LABS: POTASSIUM 4.4 mmol/L (3.5-5.1)
[2020-08-29 10:02] LABS: CALCIUM 8.9 mg/dL (8.5-10.1)
[2020-08-29 10:03] LABS: ALBUMIN 3.4 g/dl (3.4-5.0); BLOOD UREA NITROGEN 11.8 mg/dL (7-18)
[2020-08-29 10:06] LABS: CREATININE 0.7 mg/dL (0.55-1.3)
[2020-08-29 10:07] LABS: BILIRUBIN,TOTAL 0.2 mg/dL (0.2-1); TOT PROT 7.2 g/dl (6.4-8.2)
[2020-08-29 10:37] LABS: PH,URINE 7.5 (5.0-8.0); URINE APPEARANCE CLEAR; URINE BILIRUBIN NEGATIVE (NEGATIVE); URINE COLOR YELLOW; URINE GLUCOSE (UA) NEGATIVE (NEGATIVE); URINE KETONE NEGATIVE (NEGATIVE); URINE LEUK ESTERASE NEGATIVE (NEGATIVE); URINE NITRITE NEGATIVE (NEGATIVE); URINE PROTEIN NEGATIVE (NEGATIVE); URINE UROBILINOGEN 0.2 mg/dL (0.2-1.0)
[2020-08-29 10:40] LABS: HCG,QUALITATIVE URINE Negative
[2020-08-29 11:17] VITALS: BP 114/85; PULSE 79; TEMP 98.5
== END 2020-08-29 11:17 | disposition home or self-care (01) ==
LOC: JER 07:44
PROC: 3E033GC Introduction of Other Therapeutic Substance into Peripheral Vein, Percutaneous Approach (ICD-10-PCS; principal; 2020-08-29)
DX: R06.02 Shortness of breath (principal); Z11.59 Encounter for screening for other viral diseases
CPT/HCPCS: 36415; 80053; 81003; 83690; 84703; 85025; 93005; 93010; 99284-25; C9803; J0131; U0003

== ENCOUNTER 2021-01-03 16:36 | Emergency (ER) | payer OTHER ==
[2021-01-03 16:45] VITALS: BP 128/89; PULSE 83; TEMP 97.8; BMI 34.2
[2021-01-03] MEDS ORDERED: SODIUM CHLORIDE 1,000 ML IV STA (17:36)
[2021-01-03 18:42] LABS: BASO % 0.6 % (0-2.0); EOS % 4.2 % (0-4.5); HEMATOCRIT 38.5 % (32.4-45.2); HEMOGLOBIN 13.3 GM/dL (10.7-15.3); MCH 26.4 pg (25.7-33.7); MCHC 34.5 g/dl (32.0-36.0); MEAN CELL VOLUME 76.6 fl (80-96); MEAN PLT VOLUME 9.6 fl (7.5-11.1); MONO % 8.8 % (3.8-10.2); NEUT % 54.4 % (42.8-82.8); PLATELET COUNT 340 K/MM3 (134-434); RBC 5.02 M/mm3 (3.60-5.2); RDW 14.8 % (11.6-15.6); WHITE BLOOD COUNT 7.7 K/mm3 (4.0-10.0)
[2021-01-03 18:46] LABS: EPI CELLS 8 /uL (0-25.1); HYALINE CASTS 0 /uL (0-3.1); PH,URINE 6.5 (5.0-8.0); URINE APPEARANCE CLEAR; URINE BACTERIA 199 /uL (0-1359); URINE BILIRUBIN NEGATIVE (NEGATIVE); URINE COLOR YELLOW; URINE GLUCOSE (UA) NEGATIVE (NEGATIVE); URINE KETONE NEGATIVE (NEGATIVE); URINE LEUK ESTERASE NEGATIVE (NEGATIVE); URINE NITRITE NEGATIVE (NEGATIVE); URINE PROTEIN NEGATIVE (NEGATIVE); URINE RBC 186 /uL (0-23.9); URINE UROBILINOGEN 0.2 mg/dL (0.2-1.0); URINE WBC 5 /uL (0-25.8)
[2021-01-03 18:47] LABS: HCG,QUALITATIVE URINE Negative
[2021-01-03 18:49] LABS: INR 1.02 (0.83-1.09); PROTHROMBIN TIME (PATIENT) 12.5 SEC (9.7-13.0)
[2021-01-03 18:51] LABS: ACTIVATED PTT 29.6 SECONDS (25.2-36.5)
[2021-01-03 19:04] LABS: CALCIUM 9.1 mg/dL (8.5-10.1)
[2021-01-03 19:05] LABS: ALBUMIN 3.6 g/dl (3.4-5.0); BLOOD UREA NITROGEN 8.3 mg/dL (7-18)
[2021-01-03 19:08] LABS: CREATININE 0.6 mg/dL (0.55-1.3)
[2021-01-03 19:09] LABS: BILIRUBIN,TOTAL 0.2 mg/dL (0.2-1); TOT PROT 7.5 g/dl (6.4-8.2)
== END 2021-01-03 21:20 | disposition home or self-care (01) ==
LOC: JER 16:36
DX: N94.6 Dysmenorrhea, unspecified (principal); D25.2 Subserosal leiomyoma of uterus
CPT/HCPCS: 36415; 76830-TC; 80053; 81003; 84703; 85025; 85610; 85730; 86850; 86900; 86901; 87086; 99284-25; C9803; U0003; U0005

== ENCOUNTER 2021-01-05 12:15 | Emergency (ER) | payer OTHER ==
[2021-01-05 12:25] VITALS: BP 136/89; PULSE 81; TEMP 98.4; BMI 34.2
[2021-01-05] MEDS ORDERED: KETOROLAC TROMETHAMINE 30 MG/1 ML VIAL IM ONE (13:09)
[2021-01-05] MEDS ORDERED: KETOROLAC TROMETHAMINE 30 MG/1 ML VIAL ONE (13:37)
== END 2021-01-05 14:27 | disposition home or self-care (01) ==
LOC: JER 12:15
PROC: 3E0233Z Introduction of Anti-inflammatory into Muscle, Percutaneous Approach (ICD-10-PCS; principal; 2021-01-05)
DX: N85.8 Other specified noninflammatory disorders of uterus (principal)
CPT/HCPCS: 96372; 99284-25

== ENCOUNTER 2021-01-09 15:17 | Emergency (ER) | payer OTHER ==
[2021-01-09] MEDS ORDERED: IBUPROFEN 400 MG TABLET (FP) PO ONE ×2 (16:20→16:37)
[2021-01-09 16:22] VITALS: BP 131/74; TEMP 98.6; BMI 34.2
[2021-01-09] MEDS ORDERED: IBUPROFEN 600 MG TABLET (FP) PO ONE (16:30)
[2021-01-09 16:38] VITALS: PULSE 77
== END 2021-01-09 16:39 | disposition home or self-care (01) ==
LOC: JER 15:17
DX: R10.2 Pelvic and perineal pain (principal); D52.9 Folate deficiency anemia, unspecified
CPT/HCPCS: 99283-25

== ENCOUNTER 2021-07-14 14:10 | Emergency (ER) | payer OTHER ==
[2021-07-14 14:31] VITALS: BP 125/74; PULSE 77; TEMP 97.6; BMI 33.6
[2021-07-14 15:42] LABS: HCG,QUALITATIVE URINE Negative
[2021-07-14 15:44] LABS: EPI CELLS 10 /uL (0-25.1); HYALINE CASTS 0 /uL (0-3.1); PH,URINE 5.5 (5.0-8.0); URINE APPEARANCE CLEAR; URINE BACTERIA 180 /uL (0-1359); URINE BILIRUBIN NEGATIVE (NEGATIVE); URINE COLOR YELLOW; URINE GLUCOSE (UA) NEGATIVE (NEGATIVE); URINE KETONE TRACE (NEGATIVE); URINE LEUK ESTERASE NEGATIVE (NEGATIVE); URINE NITRITE NEGATIVE (NEGATIVE); URINE PROTEIN NEGATIVE (NEGATIVE); URINE RBC 253 /uL (0-23.9); URINE WBC 6 /uL (0-25.8)
[2021-07-14] MEDS ORDERED: KETOROLAC TROMETHAMINE 60 MG/2 ML VIAL IM ONE (16:20)
[2021-07-14] MEDS ORDERED: KETOROLAC TROMETHAMINE 15 MG/ML VIAL ONE (16:39)
[2021-07-14 16:45] LABS: BASO % 0.5 % (0-2.0); EOS % 2.5 % (0-4.5); HEMATOCRIT 41.1 % (32.4-45.2); HEMOGLOBIN 14.1 GM/dL (10.7-15.3); LYMPH % 24.4 % (8-40); MCH 26.8 pg (25.7-33.7); MCHC 34.3 g/dl (32.0-36.0); MEAN CELL VOLUME 78.2 fl (80-96); MEAN PLT VOLUME 9.6 fl (7.5-11.1); MONO % 7.1 % (3.8-10.2); NEUT % 65.5 % (42.8-82.8); PLATELET COUNT 359 10^3/uL (134-434); RBC 5.26 M/mm3 (3.60-5.2); RDW 14.3 % (11.6-15.6); WHITE BLOOD COUNT 8.1 K/mm3 (4.0-10.0)
[2021-07-14 16:55] LABS: INR 1.04 (0.83-1.09); PROTHROMBIN TIME (PATIENT) 11.6 SEC (9.7-13.0)
[2021-07-14 17:04] LABS: ALBUMIN 3.8 g/dl (3.4-5.0); BLOOD UREA NITROGEN 7.2 mg/dL (7-18); CALCIUM 9.3 mg/dL (8.5-10.1)
[2021-07-14 17:07] LABS: CREATININE 0.7 mg/dL (0.55-1.3)
[2021-07-14 17:09] LABS: BILIRUBIN,TOTAL 0.4 mg/dL (0.2-1)
[2021-07-14] MEDS ORDERED: KETOROLAC TROMETHAMINE 15 MG/ML VIAL IVPUSH ONE (17:09)
== END 2021-07-14 22:02 | disposition home or self-care (01) ==
LOC: JER 14:10
PROC: 3E033GC Introduction of Other Therapeutic Substance into Peripheral Vein, Percutaneous Approach (ICD-10-PCS; principal; 2021-07-14)
DX: D25.9 Leiomyoma of uterus, unspecified (principal)
CPT/HCPCS: 36415; 76830-TC; 80053; 81003; 84703; 85025; 85610; 86850; 86900; 86901; 87086; 99284-25

== ENCOUNTER 2021-11-17 19:33 | Emergency (ER) | payer OTHER ==
[2021-11-17 19:41] VITALS: BP 131/86; PULSE 82; TEMP 98.2; BMI 33.5
[2021-11-17] MEDS ORDERED: IBUPROFEN 100 MG/5 ML UNIT DOSE CUPS ONE (20:23)
== END 2021-11-17 21:18 | disposition home or self-care (01) ==
LOC: JER 19:33
DX: J06.9 Acute upper respiratory infection, unspecified (principal)
CPT/HCPCS: 71046-TC-FY; 99283-25

== ENCOUNTER 2022-06-18 21:41 | Emergency (ER) | payer OTHER ==
[2022-06-18 21:52] VITALS: RESP 18; BMI 34.5
[2022-06-18] MEDS ORDERED: DEXAMETHASONE LIQUID 0.5 MG/5 ML PO ONE (23:24)
[2022-06-18] MEDS ORDERED: DEXAMETHASONE SOD PHOSPHATE 10 MG/1 ML VIAL ONE (23:28)
[2022-06-18] MEDS: ALBUTEROL SO4 2.5/IPRATROPIUM 0.5 INH SOL 3 ML VIAL.NEB. NEB SCH ×2 (23:38→23:39)
[2022-06-18] MEDS: ALBUTEROL SO4 2.5/IPRATROPIUM 0.5 INH SOL 3 ML VIAL.NEB. NEB ONE ×2 (23:38→23:39)
[2022-06-19 04:07] VITALS: BP 124/85; PULSE 72; TEMP 98.1
== END 2022-06-19 04:07 | disposition home or self-care (01) ==
LOC: JER 21:41 → JERFT 21:41 → JER 06-19 04:07
PROC: 3E0F7GC Introduction of Other Therapeutic Substance into Respiratory Tract, Via Natural or Artificial Opening (ICD-10-PCS; principal; 2022-06-18)
DX: R06.02 Shortness of breath (principal); J45.901 Unspecified asthma with (acute) exacerbation
CPT/HCPCS: 0241U-QW; 71046-TC-FY; 93005; 93010; 99285-25

== ENCOUNTER 2022-07-25 23:04 | Inpatient (IN) | payer OTHER ==
[2022-07-25 23:22] VITALS: BMI 35.0
[2022-07-26] MEDS ORDERED: ALBUTEROL SO4 2.5/IPRATROPIUM 0.5 INH SOL 3 ML VIAL.NEB. NEB ONE ×3 (00:23→11:51)
[2022-07-26] MEDS ORDERED: DEXAMETHASONE SOD PHOSPHATE 10 MG/1 ML VIAL ONE (00:27)
[2022-07-26] MEDS ORDERED: DEXAMETHASONE SOD PHOSPHATE 10 MG/1 ML VIAL IM ONE (00:33)
[2022-07-26] MEDS: ALBUTEROL SO4 2.5/IPRATROPIUM 0.5 INH SOL 3 ML VIAL.NEB. NEB SCH ×6 (00:38→20:09)
[2022-07-26] MEDS ORDERED: ALBUTEROL SO4 0.083% IH SOL 2.5 MG/3 ML VIAL.NEB. NEB ONE ×4 (01:09→01:57)
[2022-07-26] MEDS ORDERED: MAGNESIUM SULF 50% (8.12 MEQ/2 ML-1 GM VIAL) IVPB ONE (01:57)
[2022-07-26] MEDS ORDERED: MAGNESIUM SULFATE IN WATER 2 GM/50 ML IVPB IVPB ONE (02:10)
[2022-07-26 02:16] LABS: BASO % 0.2 % (0-2.0); EOS % 1.3 % (0-4.5); HEMATOCRIT 38.9 % (32.4-45.2); HEMOGLOBIN 13.1 GM/dL (10.7-15.3); LYMPH % 9.3 % (8-40); MCH 26.8 pg (25.7-33.7); MCHC 33.7 g/dl (32.0-36.0); MEAN CELL VOLUME 79.6 fl (80-96); MEAN PLT VOLUME 9.4 fl (7.5-11.1); NEUT % 85.2 % (42.8-82.8); PLATELET COUNT 282 10^3/uL (134-434); RBC 4.89 M/mm3 (3.60-5.2); WHITE BLOOD COUNT 10.3 K/mm3 (4.0-10.0)
[2022-07-26 02:37] LABS: ALBUMIN 3.7 g/dl (3.4-5.0)
[2022-07-26 03:06] LABS: BILIRUBIN,TOTAL 0.1 mg/dL (0.2-1); BLOOD UREA NITROGEN 6.6 mg/dL (7-18); CREATININE 0.8 mg/dL (0.55-1.3); TOT PROT 7.1 g/dl (6.4-8.2)
[2022-07-26] MEDS ORDERED: LEVALBUTEROL HCL 0.63 MG/3 ML VIAL.NEB. IH ONE (03:22)
[2022-07-26] MEDS ORDERED: SODIUM CHLORIDE 1,000 ML IV STA (03:23)
[2022-07-26] MEDS ORDERED: CEFTRIAXONE 1 GM in DEXTROSE 5%-WATER - 100 ML IVPB ONE (06:43)
[2022-07-26] MEDS ORDERED: AZITHROMYCIN IVPB 500 MG in DEXTROSE 5%-WATER - 250 ML IVPB ONE (06:44)
[2022-07-26] MEDS ORDERED: CEFTRIAXONE 1 GM/50 ML BAG ONE (06:46)
[2022-07-26 07:40] LABS: LACTIC ACID 5.4 mmol/L (0.4-2.0)
[2022-07-26] MEDS ORDERED: AZITHROMYCIN IVPB 500 MG/250 ML BAG IVPB ONE (07:42)
[2022-07-26] MEDS ORDERED: methylPREDNISolone NA SUCC 40 MG/1 ML VIAL ONE (08:47)
[2022-07-26 09:07] LABS: URINE APPEARANCE HAZY; URINE COLOR ORANGE
[2022-07-26 09:08] LABS: URINE BILIRUBIN NEGATIVE (NEGATIVE); URINE GLUCOSE (UA) 500 mg/dl (NEGATIVE); URINE KETONE 15 mg/dl (NEGATIVE)
[2022-07-26 09:09] LABS: EPI CELLS 24.5 /uL (0-25.1); URINE LEUK ESTERASE TRACE (NEGATIVE); URINE NITRITE NEGATIVE (NEGATIVE); URINE RBC 7158.4 /uL (0-23.9); URINE UROBILINOGEN 0.2 mg/dL (0.2-1.0); URINE WBC 43.2 /uL (0-25.8)
[2022-07-26 09:10] LABS: URINE BACTERIA 101.2 /uL (0-1359)
[2022-07-26] MEDS ORDERED: POTASSIUM CHLORIDE TABS 20 MEQ TABLET.ER (FP) PO ONE ×2 (09:18→09:37)
[2022-07-26] MEDS ORDERED: methylPREDNISolone NA SUCC 40 MG/1 ML VIAL IVPUSH SCH (10:00)
[2022-07-26] MEDS ORDERED: ALBUTEROL SO4 0.083% IH SOL 2.5 MG/3 ML VIAL.NEB. NEB PRN ×2 (11:00)
[2022-07-26] MEDS: methylPREDNISolone NA SUCC 40 MG/1 ML VIAL IVPUSH SCH (17:22)
[2022-07-26] MEDS: MONTELUKAST NA 10 MG TABLET PO SCH (22:11)
[2022-07-26] MEDS: MELATONIN 5 MG TABLETS PO PRN (22:31)
[2022-07-27] MEDS: methylPREDNISolone NA SUCC 40 MG/1 ML VIAL IVPUSH SCH ×3 (01:37→17:37)
[2022-07-27] MEDS: ALBUTEROL SO4 2.5/IPRATROPIUM 0.5 INH SOL 3 ML VIAL.NEB. NEB SCH ×5 (07:23→20:20)
[2022-07-27] MEDS: CEFTRIAXONE 1 GM in DEXTROSE 5%-WATER - 50 ML IVPB SCH (10:34)
[2022-07-27] MEDS: AZITHROMYCIN IVPB 500 MG/250 ML BAG IVPB SCH (10:35)
[2022-07-27] MEDS: MONTELUKAST NA 10 MG TABLET PO SCH (22:18)
[2022-07-27] MEDS: MELATONIN 5 MG TABLETS PO PRN (22:21)
[2022-07-28] MEDS: methylPREDNISolone NA SUCC 40 MG/1 ML VIAL IVPUSH SCH ×3 (02:13→17:22)
[2022-07-28] MEDS: CEFTRIAXONE 1 GM in DEXTROSE 5%-WATER - 50 ML IVPB SCH (10:09)
[2022-07-28] MEDS: AZITHROMYCIN IVPB 500 MG/250 ML BAG IVPB SCH (10:15)
[2022-07-28] MEDS: guaiFENesin 200 MG/10 ML 10 ML UNIT-DOSE CUPS PO PRN ×2 (10:33→17:24)
[2022-07-28] MEDS: ALBUTEROL SO4 2.5/IPRATROPIUM 0.5 INH SOL 3 ML VIAL.NEB. NEB SCH ×4 (11:14→20:05)
[2022-07-28] MEDS: PANTOPRAZOLE SODIUM 40 MG VIAL IVPUSH SCH (11:34)
[2022-07-28] MEDS: MONTELUKAST NA 10 MG TABLET PO SCH (21:30)
[2022-07-28] MEDS: MELATONIN 5 MG TABLETS PO PRN (22:44)
[2022-07-29] MEDS: methylPREDNISolone NA SUCC 40 MG/1 ML VIAL IVPUSH SCH ×3 (01:58→17:36)
[2022-07-29] MEDS: ALBUTEROL SO4 2.5/IPRATROPIUM 0.5 INH SOL 3 ML VIAL.NEB. NEB SCH ×4 (08:11→20:05)
[2022-07-29] MEDS: CEFTRIAXONE 1 GM in DEXTROSE 5%-WATER - 50 ML IVPB SCH (09:57)
[2022-07-29] MEDS: AZITHROMYCIN IVPB 500 MG/250 ML BAG IVPB SCH (09:58)
[2022-07-29] MEDS: PANTOPRAZOLE SODIUM 40 MG VIAL IVPUSH SCH (10:03)
[2022-07-29 13:43] LABS: HEMATOCRIT 43.5 % (32.4-45.2); HEMOGLOBIN 14.7 GM/dL (10.7-15.3); MCH 26.5 pg (25.7-33.7); MCHC 33.7 g/dl (32.0-36.0); MEAN CELL VOLUME 78.8 fl (80-96); MEAN PLT VOLUME 9.3 fl (7.5-11.1); PLATELET COUNT 365 10^3/uL (134-434); RBC 5.52 M/mm3 (3.60-5.2); RDW 14.2 % (11.6-15.6); WHITE BLOOD COUNT 16.5 K/mm3 (4.0-10.0)
[2022-07-29 13:59] LABS: ALBUMIN 3.5 g/dl (3.4-5.0); BLOOD UREA NITROGEN 17.6 mg/dL (7-18); CALCIUM 9.4 mg/dL (8.5-10.1)
[2022-07-29 14:02] LABS: CREATININE 0.8 mg/dL (0.55-1.3)
[2022-07-29 14:04] LABS: BILIRUBIN,TOTAL 0.2 mg/dL (0.2-1); TOT PROT 7.2 g/dl (6.4-8.2)
[2022-07-29 14:07] LABS: LACTIC ACID 3.2 mmol/L (0.4-2.0)
[2022-07-29 14:32] LABS: ANISOCYTOSIS 0; HELMET CELLS 0; HOWELL-JOLLY BODIES 0; MACROCYTOSIS 0; OVALOCYTE 0; ROULEAU 0; SICKELED CELLS 0; TARGET CELLS 0; TEAR DROP CELLS 0; TOXIC GRANULATION 0
[2022-07-29] MEDS: SODIUM CHLORIDE 0.45%/POT 20 MEQ/1,000 ML INFUS.BAG IV SCH (15:41)
[2022-07-29] MEDS: MONTELUKAST NA 10 MG TABLET PO SCH (22:26)
[2022-07-30] MEDS: methylPREDNISolone NA SUCC 40 MG/1 ML VIAL IVPUSH SCH ×3 (01:33→17:59)
[2022-07-30] MEDS: ALBUTEROL SO4 2.5/IPRATROPIUM 0.5 INH SOL 3 ML VIAL.NEB. NEB SCH ×4 (07:15→20:40)
[2022-07-30] MEDS: PANTOPRAZOLE 40 MG TABLET PO SCH (09:42)
[2022-07-30] MEDS: CEFTRIAXONE 1 GM in DEXTROSE 5%-WATER - 50 ML IVPB SCH (09:42)
[2022-07-30 11:11] LABS: ARTERIAL BLD GAS O2 SATURATION 92.9 % (95-98); ARTERIAL BLOOD GAS BASE EXCESS 0.7 mmol/L (-2-2); ARTERIAL BLOOD GAS PO2 61.2 mmHg (80-100); ARTERIAL BLOOD GAS pH 7.463 (7.350-7.450)
[2022-07-30] MEDS: AZITHROMYCIN IVPB 500 MG/250 ML BAG IVPB SCH (11:11)
[2022-07-30 11:13] LABS: ALLENS TEST POSITIVE
[2022-07-30] MEDS: ENOXAPARIN NA (PORCINE) 40 MG/0.4 ML DISP.SYRIN SQ SCH (11:22)
[2022-07-30 12:56] LABS: LACTIC ACID 2.9 mmol/L (0.4-2.0)
[2022-07-30] MEDS: SODIUM CHLORIDE 0.45%/POT 20 MEQ/1,000 ML INFUS.BAG IV SCH ×2 (15:42→21:33)
[2022-07-30] MEDS: BUDESONIDE/FORMETEROL FUMARATE 160/4.5 mcg INHALER IH SCH ×2 (18:26→21:37)
[2022-07-30] MEDS: MONTELUKAST NA 10 MG TABLET PO SCH (21:33)
[2022-07-30 22:24] VITALS: RESP 20
[2022-07-30] MEDS: MELATONIN 5 MG TABLETS PO PRN (23:20)
[2022-07-31] MEDS: methylPREDNISolone NA SUCC 40 MG/1 ML VIAL IVPUSH SCH ×3 (01:56→17:45)
[2022-07-31] MEDS: ALBUTEROL SO4 2.5/IPRATROPIUM 0.5 INH SOL 3 ML VIAL.NEB. NEB SCH (08:11)
[2022-07-31] MEDS: PANTOPRAZOLE 40 MG TABLET PO SCH (09:32)
[2022-07-31] MEDS: ENOXAPARIN NA (PORCINE) 40 MG/0.4 ML DISP.SYRIN SQ SCH (09:32)
[2022-07-31] MEDS: CEFTRIAXONE 1 GM in DEXTROSE 5%-WATER - 50 ML IVPB SCH (09:32)
[2022-07-31] MEDS: BUDESONIDE/FORMETEROL FUMARATE 160/4.5 mcg INHALER IH SCH ×2 (09:36→22:01)
[2022-07-31] MEDS: AZITHROMYCIN IVPB 500 MG/250 ML BAG IVPB SCH (11:05)
[2022-07-31 11:10] LABS: MCH 26.3 pg (25.7-33.7); MCHC 33.4 g/dl (32.0-36.0); MEAN CELL VOLUME 78.9 fl (80-96); MEAN PLT VOLUME 9.4 fl (7.5-11.1); PLATELET COUNT 400 10^3/uL (134-434); RBC 5.71 M/mm3 (3.60-5.2); WHITE BLOOD COUNT 19.2 K/mm3 (4.0-10.0)
[2022-07-31 11:39] LABS: CALCIUM 9.1 mg/dL (8.5-10.1)
[2022-07-31 11:40] LABS: ALBUMIN 3.2 g/dl (3.4-5.0)
[2022-07-31 11:43] LABS: CREATININE 0.7 mg/dL (0.55-1.3)
[2022-07-31 11:44] LABS: TOT PROT 6.7 g/dl (6.4-8.2)
[2022-07-31 11:45] LABS: BILIRUBIN,TOTAL 0.4 mg/dL (0.2-1)
[2022-07-31 13:16] LABS: ANISOCYTOSIS 0; HELMET CELLS 0; HOWELL-JOLLY BODIES 0; MACROCYTOSIS 0; OVALOCYTE 0; ROULEAU 0; SICKELED CELLS 0; TARGET CELLS 0; TEAR DROP CELLS 0; TOXIC GRANULATION 0
[2022-07-31] MEDS: SODIUM CHLORIDE 0.45%/POT 20 MEQ/1,000 ML INFUS.BAG IV SCH (17:45)
[2022-07-31] MEDS: MONTELUKAST NA 10 MG TABLET PO SCH (21:56)
[2022-07-31] MEDS: MELATONIN 5 MG TABLETS PO PRN (23:38)
[2022-08-01] MEDS: methylPREDNISolone NA SUCC 40 MG/1 ML VIAL IVPUSH SCH ×3 (02:11→21:34)
[2022-08-01] MEDS: CEFTRIAXONE 1 GM in DEXTROSE 5%-WATER - 50 ML IVPB SCH (10:14)
[2022-08-01] MEDS: PANTOPRAZOLE 40 MG TABLET PO SCH (10:14)
[2022-08-01] MEDS: BUDESONIDE/FORMETEROL FUMARATE 160/4.5 mcg INHALER IH SCH ×2 (10:14→21:32)
[2022-08-01] MEDS: ENOXAPARIN NA (PORCINE) 40 MG/0.4 ML DISP.SYRIN SQ SCH (10:14)
[2022-08-01] MEDS: AZITHROMYCIN IVPB 500 MG/250 ML BAG IVPB SCH (11:18)
[2022-08-01] MEDS: SODIUM CHLORIDE 0.45%/POT 20 MEQ/1,000 ML INFUS.BAG IV SCH ×2 (21:28→21:34)
[2022-08-01] MEDS: MONTELUKAST NA 10 MG TABLET PO SCH (21:32)
[2022-08-01] MEDS: guaiFENesin 200 MG/10 ML 10 ML UNIT-DOSE CUPS PO PRN (23:12)
[2022-08-01] MEDS: MELATONIN 5 MG TABLETS PO PRN (23:12)
[2022-08-02] MEDS: ENOXAPARIN NA (PORCINE) 40 MG/0.4 ML DISP.SYRIN SQ SCH (10:13)
[2022-08-02] MEDS: BUDESONIDE/FORMETEROL FUMARATE 160/4.5 mcg INHALER IH SCH (10:13)
[2022-08-02] MEDS: CEFTRIAXONE 1 GM in DEXTROSE 5%-WATER - 50 ML IVPB SCH (10:13)
[2022-08-02] MEDS: methylPREDNISolone NA SUCC 40 MG/1 ML VIAL IVPUSH SCH (10:13)
[2022-08-02] MEDS: PANTOPRAZOLE 40 MG TABLET PO SCH (10:13)
[2022-08-02] MEDS: AZITHROMYCIN IVPB 500 MG/250 ML BAG IVPB SCH (11:22)
[2022-08-02] MEDS ORDERED: AZITHROMYCIN 500 MG TABLET PO ONE (12:00)
[2022-08-02] MEDS ORDERED: AZITHROMYCIN 250 MG TABLET PO ONE (12:15)
[2022-08-02 14:25] VITALS: BP 121/92; PULSE 92; TEMP 98.2
== END 2022-08-02 14:23 | disposition home or self-care (01) | DRG 141 ==
LOC: JER 23:04 → JERBED 07-26 01:59 → OBSVTOIN 07-26 01:59 → J8W 07-26 15:27
PROVIDERS: ADMIT Internal Medicine; ATTEND Internal Medicine
DX: J45.901 Unspecified asthma with (acute) exacerbation (principal); J18.9 Pneumonia, unspecified organism; Z79.01 Long term (current) use of anticoagulants; R00.0 Tachycardia, unspecified; R07.89 Other chest pain; R06.02 Shortness of breath; F12.90 Cannabis use, unspecified, uncomplicated; E66.9 Obesity, unspecified; Z68.35 Body mass index [BMI] 35.0-35.9, adult; E87.20 Acidosis, unspecified; E87.6 Hypokalemia
CPT/HCPCS: 0241U-QW; 36415; 36600; 71045-TC-FY; 71275-TC; 80053; 81003; 82803; 83605; 84703; 85025; 87040; 87899; 93005; 93010; 94010; 94640; 99285-25; J1100; J3480; Q9967

== ENCOUNTER 2023-08-31 07:30 | Emergency (ER) | payer OTHER ==
[2023-08-31 07:34] VITALS: RESP 18; BMI 34.2
[2023-08-31] MEDS ORDERED: ONDANSETRON *ODT* 4 MG TABLET SL ONE (08:17)
[2023-08-31] MEDS ORDERED: ONDANSETRON *ODT* 4 MG TABLET ONE (08:22)
[2023-08-31] MEDS ORDERED: ALBUTEROL SO4 2.5/IPRATROPIUM 0.5 INH SOL 3 ML VIAL.NEB. NEB ONE ×2 (08:43→08:46)
[2023-08-31] MEDS: ALBUTEROL SO4 2.5/IPRATROPIUM 0.5 INH SOL 3 ML VIAL.NEB. NEB SCH ×4 (08:45→09:35)
[2023-08-31] MEDS ORDERED: predniSONE 20 MG TABLET (UD) PO ONE (10:07)
[2023-08-31] MEDS ORDERED: predniSONE 20 MG TABLET (UD) ONE (10:22)
[2023-08-31] MEDS ORDERED: predniSONE 10 MG TABLET (UD) ONE (10:22)
[2023-08-31 10:31] VITALS: BP 128/77; PULSE 88; TEMP 97.9
== END 2023-08-31 10:38 | disposition home or self-care (01) ==
LOC: JER 07:30
PROC: 3E0F7GC Introduction of Other Therapeutic Substance into Respiratory Tract, Via Natural or Artificial Opening (ICD-10-PCS; principal; 2023-08-31)
DX: R06.02 Shortness of breath (principal); R05.1 Acute cough; B34.9 Viral infection, unspecified; Z20.822 Contact with and (suspected) exposure to COVID-19
CPT/HCPCS: 0241U-QW; 71046-TC-FY; 99284-25; Q0162

== ENCOUNTER 2023-11-14 09:39 | Emergency (ER) | payer OTHER ==
[2023-11-14 09:53] VITALS: BP 140/91; PULSE 78; RESP 18; TEMP 97.8; BMI 34.2
[2023-11-14] MEDS ORDERED: DEXAMETHASONE SOD PHOSPHATE 10 MG/1 ML VIAL ONE (10:51)
[2023-11-14] MEDS ORDERED: ALBUTEROL SO4 2.5/IPRATROPIUM 0.5 INH SOL 3 ML VIAL.NEB. NEB ONE (10:51)
[2023-11-14] MEDS ORDERED: ACETAMINOPHEN 325 MG TABLET (FP) ONE (10:51)
[2023-11-14] MEDS: DEXAMETHASONE LIQUID 0.5 MG/5 ML PO ONE (10:57)
[2023-11-14] MEDS: ACETAMINOPHEN 500 MG TABLET (FP) PO ONE (10:58)
[2023-11-14] MEDS: ALBUTEROL SO4 2.5/IPRATROPIUM 0.5 INH SOL 3 ML VIAL.NEB. NEB ONE (10:58)
== END 2023-11-14 12:11 | disposition home or self-care (01) ==
LOC: JERFT 09:39
PROC: 3E0F7GC Introduction of Other Therapeutic Substance into Respiratory Tract, Via Natural or Artificial Opening (ICD-10-PCS; principal; 2023-11-14)
DX: J06.9 Acute upper respiratory infection, unspecified (principal); J45.909 Unspecified asthma, uncomplicated; M79.10 Myalgia, unspecified site; R07.9 Chest pain, unspecified; R50.9 Fever, unspecified; Z20.822 Contact with and (suspected) exposure to COVID-19
CPT/HCPCS: 0241U-QW; 94640; 99283-25

== ENCOUNTER 2024-01-17 07:53 | Emergency (ER) | payer OTHER ==
[2024-01-17 08:03] VITALS: BP 124/87; PULSE 67; RESP 18; TEMP 98.5; BMI 34.7
[2024-01-17] MEDS ORDERED: ALBUTEROL SO4 2.5/IPRATROPIUM 0.5 INH SOL 3 ML VIAL.NEB. NEB ONE (08:44)
[2024-01-17] MEDS: ALBUTEROL SO4 2.5/IPRATROPIUM 0.5 INH SOL 3 ML VIAL.NEB. NEB ONE (08:49)
[2024-01-17] MEDS ORDERED: LIDOCAINE 4% PATCH TP ONE (09:15)
[2024-01-17] MEDS: LIDOCAINE 5% TOPICAL PATCH TP ONE (09:22)
[2024-01-17] MEDS ORDERED: LIDOCAINE PATCH REMOVAL MC SCH (22:00)
== END 2024-01-17 10:05 | disposition home or self-care (01) ==
LOC: JERFT 07:53
PROC: 3E0F7GC Introduction of Other Therapeutic Substance into Respiratory Tract, Via Natural or Artificial Opening (ICD-10-PCS; principal; 2024-01-17)
DX: J45.901 Unspecified asthma with (acute) exacerbation (principal); J06.9 Acute upper respiratory infection, unspecified; B97.89 Other viral agents as the cause of diseases classified elsewhere; R09.81 Nasal congestion; R05.9 Cough, unspecified; R68.83 Chills (without fever); R09.82 Postnasal drip; Z20.822 Contact with and (suspected) exposure to COVID-19
CPT/HCPCS: 0241U-QW; 99283-25

== ENCOUNTER 2024-07-05 02:36 | Observation (INO) | payer OTHER ==
[2024-07-05] MEDS ORDERED: morphine SULFATE 4 MG/ML VIAL ONE ×2 (03:47→08:06)
[2024-07-05] MEDS: morphine CARPU-JECT 4 MG/1 ML DISP.SYRIN IVPUSH ONE ×2 (04:00→08:18)
[2024-07-05 04:19] LABS: HEMATOCRIT 38.6 % (32.4-45.2); MCH 26.5 pg (25.7-33.7)
[2024-07-05 04:28] LABS: INR 1.04 (0.83-1.09)
[2024-07-05 04:31] LABS: ACTIVATED PTT 29.6 SECONDS (25.2-36.5)
[2024-07-05 04:32] LABS: BASO % 0.6 % (0-2.0); EOS % 2.3 % (0-4.5); HEMOGLOBIN 13.3 GM/dL (10.7-15.3); LYMPH % 19.9 % (8-40); MCHC 34.4 g/dl (32.0-36.0); MEAN CELL VOLUME 76.9 fl (80-96); MEAN PLT VOLUME 9.4 fl (7.5-11.1); MONO % 7.9 % (3.8-10.2); NEUT % 69.3 % (42.8-82.8); PLATELET COUNT 326 10^3/uL (134-434); RBC 5.02 M/mm3 (3.60-5.2); RDW 14.2 % (11.6-15.6); WHITE BLOOD COUNT 10.5 K/mm3 (4.0-10.0)
[2024-07-05 04:56] LABS: CHLORIDE 106 mmol/L (98-107); POTASSIUM 4.4 mmol/L (3.5-5.1); SODIUM 137 mmol/L (136-145)
[2024-07-05 04:58] LABS: CALCIUM 9.1 mg/dL (8.5-10.1)
[2024-07-05 04:59] LABS: ALBUMIN 3.6 g/dl (3.4-5.0); ANION GAP 7 mmol/L (4-13); BLOOD UREA NITROGEN 9.9 mg/dL (7-18); CO2 25 mmol/L (21-32); GLUCOSE,RANDOM 101 mg/dL (74-106)
[2024-07-05 05:02] LABS: CREATININE 0.7 mg/dL (0.55-1.3); SGOT/AST 21 U/L (15-37); SGPT/ALT 18 U/L (13-61)
[2024-07-05 05:04] LABS: BILIRUBIN,TOTAL 0.6 mg/dL (0.2-1); TOT PROT 6.9 g/dl (6.4-8.2)
[2024-07-05 05:05] LABS: ALK PHOS 66 U/L (45-117)
[2024-07-05 05:39] LABS: PH,URINE 5.5 (5.0-8.0); URINE APPEARANCE CLEAR; URINE BILIRUBIN NEGATIVE (NEGATIVE); URINE COLOR YELLOW; URINE GLUCOSE (UA) NEGATIVE (NEGATIVE); URINE KETONE NEGATIVE (NEGATIVE); URINE LEUK ESTERASE NEGATIVE (NEGATIVE); URINE NITRITE NEGATIVE (NEGATIVE); URINE PROTEIN NEGATIVE (NEGATIVE)
[2024-07-05] MEDS ORDERED: ACETAMINOPHEN INJECTION 100 ML ONE (08:10)
[2024-07-05] MEDS: SODIUM CHLORIDE 0.9% 500 ML INFUS.BAG IV ONE (08:18)
[2024-07-05] MEDS: ACETAMINOPHEN 1000 MG/100 ML BAG IVPB ONE (08:18)
[2024-07-05] MEDS ORDERED: KETOROLAC TROMETHAMINE 15 MG/ML VIAL ONE (11:02)
[2024-07-05] MEDS: KETOROLAC TROMETHAMINE 30 MG/1 ML VIAL IVPUSH ONE (11:13)
[2024-07-05 14:32] VITALS: BMI 32.2
[2024-07-05] MEDS: CEFTRIAXONE 1 G/50 ML PREMIX 50 ML IVPB SCH (14:36)
[2024-07-05] MEDS: ACETAMINOPHEN 1000 MG/100 ML BAG IVPB PRN (17:25)
[2024-07-05] MEDS: ONDANSETRON 4 MG/2 ML VIAL IVPUSH ONE (21:08)
[2024-07-06] MEDS: KETOROLAC TROMETHAMINE 15 MG/ML VIAL IVPUSH PRN (11:02)
[2024-07-06] MEDS ORDERED: ONDANSETRON 4 MG/2 ML VIAL IVPUSH PRN (11:48)
[2024-07-06] MEDS: MELATONIN 1 MG TABLET PO SCH (21:42)
[2024-07-07] MEDS ORDERED: IBUPROFEN 600 MG TABLET (FP) PO PRN (09:39)
[2024-07-07] MEDS ORDERED: diazePAM 5 MG TABLET PO ONE (10:04)
[2024-07-07] MEDS: KETOROLAC TROMETHAMINE 15 MG/ML VIAL IVPUSH PRN (11:37)
[2024-07-07] MEDS: diazePAM 5 MG TABLET PO ONE (13:47)
[2024-07-07 14:53] VITALS: BP 147/95; PULSE 72; RESP 18; TEMP 98.6
== END 2024-07-07 18:02 | disposition home or self-care (01) ==
LOC: JER 02:36 → JERBED 12:23 → J7W 13:59
PROVIDERS: ADMIT Internal Medicine; ATTEND Internal Medicine
PROC: 3E03329 Introduction of Other Anti-infective into Peripheral Vein, Percutaneous Approach (ICD-10-PCS; principal; 2024-07-05)
PROC: 3E0333Z Introduction of Anti-inflammatory into Peripheral Vein, Percutaneous Approach (ICD-10-PCS; 2024-07-05)
PROC: 3E033NZ Introduction of Analgesics, Hypnotics, Sedatives into Peripheral Vein, Percutaneous Approach (ICD-10-PCS; 2024-07-05)
PROC: 3E0337Z Introduction of Electrolytic and Water Balance Substance into Peripheral Vein, Percutaneous Approach (ICD-10-PCS; 2024-07-05)
DX: K37 Unspecified appendicitis (principal); J45.909 Unspecified asthma, uncomplicated; N83.209 Unspecified ovarian cyst, unspecified side; D25.9 Leiomyoma of uterus, unspecified
CPT/HCPCS: 36415; 72197-TC; 74177-TC; 76830-TC; 80053; 81003; 84702; 84703; 85025; 85610; 85730; 86850; 86900; 86901; 87086; 96365; 96375; 96376; 99285-25; G0378; J0131; Q9967

== ENCOUNTER 2024-07-13 15:46 | Emergency (ER) | payer OTHER ==
[2024-07-13 16:14] VITALS: BP 142/88; PULSE 72; RESP 18; TEMP 98.5; BMI 32.2
[2024-07-13] MEDS: KETOROLAC TROMETHAMINE 15 MG/ML VIAL IVPUSH ONE (17:49)
[2024-07-13 17:50] LABS: BASO % 0.7 % (0-2.0); EOS % 3.1 % (0-4.5); HEMATOCRIT 40.3 % (32.4-45.2); HEMOGLOBIN 13.8 GM/dL (10.7-15.3); LYMPH % 26.6 % (8-40); MCH 26.7 pg (25.7-33.7); MCHC 34.3 g/dl (32.0-36.0); MEAN CELL VOLUME 77.7 fl (80-96); MEAN PLT VOLUME 9.6 fl (7.5-11.1); MONO % 6.7 % (3.8-10.2); NEUT % 62.9 % (42.8-82.8); PH,URINE 5.5 (5.0-8.0); PLATELET COUNT 309 10^3/uL (134-434); RBC 5.19 M/mm3 (3.60-5.2); RDW 14.4 % (11.6-15.6); URINE APPEARANCE CLEAR; URINE BILIRUBIN NEGATIVE (NEGATIVE); URINE COLOR YELLOW; URINE GLUCOSE (UA) NEGATIVE (NEGATIVE); URINE KETONE NEGATIVE (NEGATIVE); URINE LEUK ESTERASE NEGATIVE (NEGATIVE); URINE NITRITE NEGATIVE (NEGATIVE); URINE PROTEIN NEGATIVE (NEGATIVE); URINE UROBILINOGEN 0.2 mg/dL (0.2-1.0); WHITE BLOOD COUNT 10.5 K/mm3 (4.0-10.0)
[2024-07-13 17:53] LABS: HCG,QUALITATIVE URINE Negative
[2024-07-13] MEDS ORDERED: KETOROLAC TROMETHAMINE 15 MG/ML VIAL ONE (17:56)
[2024-07-13 18:06] LABS: POTASSIUM 3.9 mmol/L (3.5-5.1)
[2024-07-13 18:09] LABS: ALBUMIN 3.9 g/dl (3.4-5.0); BLOOD UREA NITROGEN 8.5 mg/dL (7-18); CALCIUM 9.4 mg/dL (8.5-10.1); MAGNESIUM 1.6 mg/dL (1.8-2.4)
[2024-07-13 18:12] LABS: BILIRUBIN,DIRECT 0.2 mg/dL (0.0-0.2); CREATININE 0.7 mg/dL (0.55-1.3)
[2024-07-13 18:14] LABS: BILIRUBIN,TOTAL 0.6 mg/dL (0.2-1); TOT PROT 7.6 g/dl (6.4-8.2)
== END 2024-07-13 19:53 | disposition home or self-care (01) ==
LOC: JER 15:46
PROC: 3E0333Z Introduction of Anti-inflammatory into Peripheral Vein, Percutaneous Approach (ICD-10-PCS; principal; 2024-07-13)
DX: R10.2 Pelvic and perineal pain (principal); R10.31 Right lower quadrant pain; R10.32 Left lower quadrant pain; R20.0 Anesthesia of skin; M54.50 Low back pain, unspecified; R11.2 Nausea with vomiting, unspecified
CPT/HCPCS: 36415; 76830-TC; 80053; 81003; 82248; 83605; 83690; 83735; 84703; 85025; 87086; 87491; 87591; 87661; 93005; 93010; 99285-25

== ENCOUNTER 2024-09-21 10:15 | Emergency (ER) | payer OTHER ==
[2024-09-21 10:27] VITALS: BP 125/73; PULSE 74; RESP 20; TEMP 97.6
[2024-09-21 11:58] LABS: BASO % 0.9 % (0-2.0); EOS % 5.3 % (0-4.5); HEMATOCRIT 43.1 % (32.4-45.2); HEMOGLOBIN 14.2 GM/dL (10.7-15.3); LYMPH % 24.2 % (8-40); MCH 26.2 pg (25.7-33.7); MCHC 32.9 g/dl (32.0-36.0); MEAN CELL VOLUME 79.4 fl (80-96); MEAN PLT VOLUME 9.8 fl (7.5-11.1); MONO % 6.9 % (3.8-10.2); NEUT % 62.7 % (42.8-82.8); PLATELET COUNT 290 10^3/uL (134-434); RBC 5.43 M/mm3 (3.60-5.2); RDW 14.2 % (11.6-15.6); WHITE BLOOD COUNT 8.4 K/mm3 (4.0-10.0)
[2024-09-21 12:14] LABS: ACTIVATED PTT 52.4 SECONDS (25.2-36.5)
[2024-09-21 12:19] LABS: POTASSIUM 4.3 mmol/L (3.5-5.1)
[2024-09-21 12:21] LABS: ALBUMIN 3.9 g/dl (3.4-5.0); CALCIUM 9.3 mg/dL (8.5-10.1)
[2024-09-21 12:22] LABS: BLOOD UREA NITROGEN 11.1 mg/dL (7-18)
[2024-09-21 12:25] LABS: CREATININE 0.8 mg/dL (0.55-1.3); INR 1.04 (0.83-1.09); PROTHROMBIN TIME (PATIENT) 11.7 SEC (9.7-13.0)
[2024-09-21 12:26] LABS: BILIRUBIN,TOTAL 0.3 mg/dL (0.2-1); TOT PROT 7.6 g/dl (6.4-8.2)
== END 2024-09-21 13:31 | disposition home or self-care (01) ==
LOC: JER 10:15
DX: U07.1 COVID-19 (principal); R07.81 Pleurodynia; R06.02 Shortness of breath; R05.9 Cough, unspecified
CPT/HCPCS: 0241U-QW; 36415; 71046-TC-FY; 80053; 84703; 85025; 85379; 85610; 85730; 93005; 93010; 99285-25